=== PATIENT | female | born 1945 | race Caucasian/White ===

== ENCOUNTER 2020-01-08 11:08 | Emergency (ER) | payer MEDICARE, SELFPAY ==
[2020-01-08 11:26] VITALS: BP 150/95; PULSE 85; RESP 16; TEMP 36.6; O2SAT 94; BMI 35.4
--- NOTE | 2020-01-08 11:45 | XR_ITS ---
EXAMINATION: XR KNEE, LEFT CLINICAL INFORMATION: Left knee swelling. COMPARISON: None TECHNIQUE: Four views of the left knee. FINDINGS: There is mild loss of medial and patellofemoral compartment joint space with periarticular spurring. There is no loose bodies. There is mild joint effusion with superior patellar spurring. No acute fracture seen. XR/XR knee LT 4V IMPRESSION: Mild degenerative changes medial and patellofemoral compartment with mild suprapatellar joint effusion. There are small osteophytes along superior patella.
--- NOTE | 2020-01-08 11:46 | ED.LOWEXIN ---
HPI - Extremity Injury (Lower) General Chief Complaint: Extremity Injury, Lower Stated Complaint: L LEG PAIN Time Seen by Provider: 01/08/20 11:45 Source: patient Mode of arrival: ambulatory Limitations: no limitations History of Present Illness HPI Narrative: 75 yo female with past medical history of afib on xarelto, CHF, COPD, HTN, depression, glaucoma, arthritis here with left knee pain x 1 week. Atraumatic. Patient tells me in November she had a RLE injury and was putting most of her weight on her LLE. She has done more activity the last few weeks (walking around the mall, walking longer distance to home from car). Noticed over the last week more pain in her left knee with swelling. No fevers, chills, erythema or calf pain. She does have pain over the anterior and posterior knee and using an faisla wrap, taking tylenol and elevating with continued symptoms. She often feels like the knee may give out on her when walking and she may fall. MD complaint: other (knee pain ) Onset (ago): week(s) Injury: Left: knee Type of Injury: other (no injury ) Severity: mild Relieving factors: immobilization and rest Exacerbating factors: weight bearing, movement and palpation Other symptoms: none Treatments prior to arrival: cold therapy, bandage and other (tylenol, elevation ) Related Data Allergies Allergy/AdvReac Type Severity Reaction Status Date / Time acetaminophen [Percocet] Allergy Unknown Vomiting Verified 01/08/20 11:29 losartan Allergy Unknown palp Verified 09/29/19 00:00 pseudoephedrine [Sudafed] Allergy Unknown Unknown Verified 01/08/20 11:29 oxycodone [OXYCODONE] AdvReac Mild NAUSEA & Unverified 12/03/19 15:39 VOMITING From SUDAFED Allergy Unknown UNKNOWN Uncoded 12/03/19 15:39 milk intolerant Allergy Unknown Unknown Uncoded 01/08/20 11:29 Review of Systems Review of Systems: Yes all other systems are reviewed and are negative Constitutional: Constitutional: Reports no additional constitutional complaints, Denies body ache(s), Denies chills, Denies fever(s), Denies headache(s) and Denies weakness Eyes: Eyes: Reports no additional eye complaints and Denies change in vision ENT: Reports system reviewed and no additional complaints, except as documented, Denies dizziness, Denies headache(s), Denies nasal congestion, Denies nasal discharge and Denies neck pain Cardiovascular: Cardiovascular: Reports no additional cardiovascular complaints, Denies chest pain, Denies leg edema and Denies dyspnea Respiratory: Respiratory: Reports no additional respiratory complaints, Denies cough and Denies dyspnea Gastrointestinal: Gastrointestinal: Reports no additional gastrointestinal complaints, Denies abdominal pain, Denies diarrhea, Denies nausea and Denies vomiting Genitourinary: Genitourinary: Reports no additional female genitourinary complaints and Denies urinary incontinence Musculoskeletal: Musculoskeletal: Reports no additional musculoskeletal complaints, Denies back pain, Reports arthralgias, Reports joint swelling, Denies neck pain, Denies numbness and Denies tingling Integumentary/Breasts: Skin/Breast: Reports system reviewed and no additional complaints, except as docu and Denies rash Neurologic: Reports system reviewed and no additional complaints, except as documented, Denies Abnormal speech present, Denies dizziness, Denies headache(s), Denies numbness, Denies tingling and Denies weakness [facility] Past Medical History Attestation statement: The following information was validated with the patient. Source: old records reviewed, obtained from family and nursing notes reviewed Medical History (Updated 01/08/20 @ 13:37 by Grace Lozada NP) Atrial fibrillation CHF (congestive heart failure) COPD (chronic obstructive pulmonary disease) Depression Glaucoma Hypertension Osteopenia Social History Social History Advance Directives: No Advance Directives Information Provided: Yes Physical Exam Vital Signs: Vital Signs: Vital Signs Temp Pulse Resp BP Pulse Ox 01/08/20 11:26 97.8 F 85 16 150/95 H 94 Body Mass Index 35.4 Const: General: cooperative, healthy appearing, comfortable and no acute distress Orientation/consciousness: patient oriented x3 Limitations: no limitations HENMT: Head: Yes normal to inspection Ears: hearing grossly normal bilaterally General nose exam: Normal external nose present Face and sinus: Yes normal facial exam Mouth: Normal oral and palatal mucosa present Throat: Yes posterior oropharynx normal Eyes: General: appearance normal, both eyes and all related structures Pupils: Equal, round and reactive pupils present Neck: Neck: Yes normal visual inspection Chest: Chest palpation & inspection: normal inspection of the chest Resp: Effort & Inspection: normal respiratory effort Auscultation: clear to auscultation bilaterally Cardio: Rate: regular rate Rhythm: regular rhythm Peripheral pulses: Peripheral pulses 2+ throughout GI: Inspection: Yes normal to inspection Palpation (GI): Soft to palpation and nontender Auscultation: normal bowel sounds Back/Spine/Pelvis: Thoracic/Lumbar Spine: thoracic and lumbar spine normal to inspection Skin: General skin exam: no rashes or lesions noted Neuro: General: patient oriented x3, no focal motor deficits and normal sensation to monofilament Cranial nerves: Yes Equal, round and reactive pupils present Cognition (Neuro): normal cognition Speech: No Abnormal speech present Gait exam (Neuro): Normal gait present Motor exam (neuro): 5/5 motor strength present throughout Extrem: General: Yes normal to inspection Left lower extremity: knee (FROM, pain with flexion but able ) Details: normal to inspection, tenderness (posterior knee ) Location: of the patella, swelling (mild) Location: of the patella and knee ligament exam normal Course Course Course Narrative: Atraumatic left knee pain, may be related to recent increase in dependency and usage. Will check x-rays. US d/t posterior knee pain with history of afib. 1400- X-ray shows arthritic changes. Ultrasound negative for DVT but does show a left Ferrraa cyst. Reviewed findings with patient. Reviewed follow-up with orthopedics. Reviewed worrisome signs and symptoms and when to return to the emergency department. Comfortable with discharge home. MDM - Extremity Injury (Lower) MDM Narrative Medical decision making narrative: OA, fracture, sprain, knee effusion, polpliteal dvt, bakers cyst Medical Records Attestation: I reviewed the patient's medical records. Imaging Data venous US: Attestation: I personally reviewed and interpreted this imaging study as follows: My impression: L bakers cyst Radiologist's impression: EXAMINATION: US VENOUS ULTRASOUND WITH DOPPLER LOWER EXTREMITY, LEFT CLINICAL INFORMATION: Left lower extremity edema and pain. COMPARISON: Venous ultrasound dated 02/27/2011. TECHNIQUE: Ultrasound of the deep veins is performed from the hip to the calf with compression sonography and color and pulse Doppler assessment. Spectral analysis with color-flow imaging is performed. FINDINGS: There is normal venous compression and respiratory variation and augmented flow. The visualized common femoral vein, proximal greater saphenous vein, femoral vein, profunda femoral vein, popliteal vein, posterior tibial vein and peroneal vein show no evidence of deep venous thrombosis. There is a 5.8 x 1.6 x 2.8 cm left popliteal fossa Ferrara's cyst. If the patient's symptoms persist, followup ultrasound in 5 days 7 days might be of value to exclude proximal propagation from a non-visualized calf vein. US/US venous duplex LE LT IMPRESSION: 1. No DVT demonstrated in the left lower extremity. 2. A left popliteal fossa Ferrara's cyst is seen. Discharge Plan Discharge Clinical Impression: Osteoarthritis, Ferrara's cyst of knee Patient Disposition: Home, Self-Care Instructions: Bakers Cyst (ED), Arthritis (ED) Additional Instructions: Faisal wrap, ice, elevation call orthopedics for a follow-up appointment continue tylenol for pain Referrals: Mariela Beltran MD [Primary Care Provider] - 2 days Josie Perrin PA-C [Physician Senior [employer] Engineer] - 2 days Interventions: ED Discharge Assessment Last Done: 01/08/20 13:42 Discharge Date/Time: 01/08/20 13:42
== END 2020-01-08 13:42 | disposition home or self-care (01) ==
PROVIDERS: Emergency Provider Emergency Medicine; PCP Internal Medicine
DX: M17.12 Unilateral primary osteoarthritis, left knee (principal); M71.22 Synovial cyst of popliteal space [Baker], left knee; M25.562 Pain in left knee; M79.605 Pain in left leg; I48.91 Unspecified atrial fibrillation; I11.0 Hypertensive heart disease with heart failure; I50.9 Heart failure, unspecified; Z79.01 Long term (current) use of anticoagulants
CPT/HCPCS: 73564; 93971; 99283; 99284

== ENCOUNTER 2020-02-23 10:33 | Outpatient (REF) | payer MEDICARE, SELFPAY ==
[2020-02-23 14:27] LABS: Alanine Aminotransferase 21 U/L (0-31); Alkaline Phosphatase 167 U/L (39-117); Anion Gap 13 (12-20); Aspartate Amino Transferase 26 U/L (5-31); Bilirubin Total 0.7 mg/dL (0.0-1.0); Blood Urea Nitrogen 17 mg/dL (9-16); Calcium 9.1 mg/dL (8.4-10.2); Carbon Dioxide 31 mmol/L (22-29); Chloride 100 mmol/L (96-108); Estimated Glomerular Filt Rate > 60; Glucose Fasting 94 mg/dL (60-99); Potassium 4.2 mmol/l (3.3-5.1); Sodium 140 mmol/L (135-145); Total Protein 7.4 g/dL (6.5-8.0)
== END 2020-02-23 10:34 | disposition home or self-care (01) ==
LOC: HO.10HDL 10:33
PROVIDERS: Visit Provider Internal Medicine
DX: M54.2 Cervicalgia (principal); I10 Essential (primary) hypertension; J44.9 Chronic obstructive pulmonary disease, unspecified; I48.0 Paroxysmal atrial fibrillation; E78.5 Hyperlipidemia, unspecified
CPT/HCPCS: 80053

== ENCOUNTER → 2020-02-24 12:45 | Outpatient (BNVA) | payer MEDICARE, SELFPAY | PROVIDERS: PCP Internal Medicine; Referring Provider Internal Medicine; Visit Provider Internal Medicine | DX: Z01.810 Encounter for preprocedural cardiovascular examination (principal); I48.19 Other persistent atrial fibrillation; I50.30 Unspecified diastolic (congestive) heart failure | CPT/HCPCS: 93005; 99212 ==

== ENCOUNTER → 2020-02-25 07:34 | Outpatient (REF) | payer MEDICARE, SELFPAY ==
--- NOTE | 2020-02-25 07:30 | CA_ITS ---
Transthoracic Echocardiogram Patient (Last, First, Middle): Danya Yan, Gender: Female Date of : 1945 Age: 75 Procedure Date: 02/25/2020 Procedure Type: Transthoracic Echocardiogram Location: OP Height: 160.02 cm Weight: 90.72 kg BSA: 1.93 m2 Heart Rate: bpm BP: 156 / 86 mmHg Tipple Supervisor: AC Referring MD: Frandy Basilio MD Symptoms: I48.19 PERSISTENT AFIB, I48.91 PER AFIB S/P CARDIOVERSION, Study Quality: Good ECG Rhythm: Atrial Fibrillation Conclusions: - The left ventricular systolic function is normal. The visually estimated ejection fraction is between 55-60%. - The left atrium is moderately dilated. - There is mild calcification of the aortic valve. - There is mild tricuspid valve regurgitation. - Mild pulmonary hypertension is present. Findings Left Ventricle Normal left ventricular cavity size. There is mildly increased left ventricular wall thickness. The left ventricular systolic function is normal. The visually estimated ejection fraction is between 55-60%. There is no evidence of regional wall motion abnormalities. Diastolic function is indeterminate on the basis of available data. Right Ventricle Normal right ventricular cavity size and systolic function. Atria The left atrium is moderately dilated. The right atrium is normal in size. Aortic Valve There is a normal trileaflet aortic valve. There is mild calcification of the aortic valve. There is no aortic valve stenosis. There is trace (trivial) aortic valve regurgitation. Mitral Valve The mitral valve appears normal. There is mild mitral valve regurgitation. There is no mitral valve stenosis. Pulmonic Valve The pulmonic valve was not well visualized. There is trace pulmonic valve regurgitation. Tricuspid Valve Normal tricuspid valve structure. There is mild tricuspid valve regurgitation. The right ventricular systolic pressure is 38 mmHg. Mild pulmonary hypertension is present. Great Vessels The aortic annulus, sinuses of valsalva, and asc aorta are normal in size. Venous The inferior vena cava is mildly dilated and collapses greater than 50% with inspiration. Pericardium/Pleural There is no evidence of pericardial effusion. Prior Study Comparison Changes noted compared to prior study dated: 10/25/2017. RVSP slightly higher. Measurements 2D Linear Measurements IVSd: 1.08 0.6-0.9/0.6-1.0 cm LVIDd: 4.53 3.9-5.3/4.2-5.9 cm LVIDd Index: 2.35 2.4-3.2/2.2-3.1 cm/m2 LVIDs: 3.35 2.0-3.6 cm LVPWd: 1.20 0.7-1.1 cm Ao Root: 2.70 2.1-3.5 cm LA Diam: 4.10 2.7-3.8/3.0-4.0 cm LAIDs Index: 2.12 1.5-2.3 cm/m2 LV Mass: 231.78 67-162/88-224 g LV Mass Index: 120.09 43-95/49-115 g/m2 LVOT Diam: 2.00 3.0+(-)1.3 cm 2D Systolic Function EF 4C: 50.50 >55% EF 2C: 50.50 >55% Mitral Valve MV Pk E: 0.75 MV Decel Time: 150.00 E'Lateral: 10.20 E'Medial: 7.64 E/E' Med: 9.80 E/E' Lat: 7.30 PHT: 44.00 MVA PHT: 5.00 Decel Parker: 5.22 Aortic Valve AoV Pk Pb: 1.70 AoV Pk Grad: 12.00 LVOT LVOT Pk Pb: 0.85 LVOT Mn Pb: 0.53 LVOT VTI: 0.18 LVOT Pk Grad: 3.00 LVOT Mn Grad: 2.00 LVOT Diam: 2.00 LVOT Area: 3.14 Diastolic Function MV Pk E: 0.75 E'Medial: 7.64 E/E' Med: 9.80 E' Laterial: 10.20 E/E' Lat: 7.30 Tricuspid Valve TR Pk Pb: 2.96 TR Pk Grad: 35.00 RA Press: 3.00 RVSP: 38.00 Great Vessels Aorta Ao Root-2D: 2.70 2.0-3.7 cm Ao Asc: 3.20 2.1-3.4 cm Updated in Other Vendor System with Status of Final Frandy Basilio MD electronically signed on 02/26/2020 12:44:22 PM with status of Final
== END ==
LOC: HO.CARD 07:34
PROVIDERS: Visit Provider Internal Medicine
DX: I48.19 Other persistent atrial fibrillation (principal); I50.30 Unspecified diastolic (congestive) heart failure
CPT/HCPCS: 93306

== ENCOUNTER 2020-02-26 14:21 | Outpatient (REF) | payer MEDICARE, SELFPAY ==
[2020-02-26 15:44] LABS: Digoxin 0.4 ng/mL (0.8-2.0)
== END 2020-02-26 14:22 | disposition home or self-care (01) ==
LOC: HO.LAB 14:21
PROVIDERS: PCP Internal Medicine; Visit Provider Internal Medicine
DX: I48.19 Other persistent atrial fibrillation (principal)
CPT/HCPCS: 80162

== ENCOUNTER → 2020-07-06 13:44 | Outpatient (REF) | payer MEDICARE, SELFPAY ==
--- NOTE | 2020-07-06 13:45 | ECG_ITS ---
Hook-up date: 2020-07-06 14:00:00 Duration: 25:39:00 Test Indications: persistant afib Medications: 479602 QRS complexes 2114 Ventricular ectopics which represent 1 % of total QRS comp. * Supraventricular ectopics which represent % of total QRS comp. * Paced QRS complexs which represent % of total QRS comp. VENTRICULAR ECTOPY 4 Isolated 16 Bigeminal Cycles 15 Couplets 0 Runs 0 Beats in Runs * Beats LONGEST at * BPM at :: -- * Beats FASTEST at * BPM at :: -- SUPRAVENTRICULAR ECTOPY * Isolated * Couplets * Runs * Beats in Runs * Beats LONGEST at * BPM at :: -- * Beats FASTEST at * BPM at :: -- HEART RATES 45 MIN at 06:01:19 2020-07-07 74 AVG 150 MAX at 09:47:58 2020-07-07 LONGEST RR 2.2640 secs at 04:52:16 2020-07-07 S-T LEVELS Channel 1 - 128 mm at 14:00:00 2020-07-06 - 128 mm at 14:00:00 2020-07-06 Channel 2 - 128 mm at 14:00:00 2020-07-06 - 128 mm at 14:00:00 2020-07-06 Channel 3 - 128 mm at 03:31:91 -- - 128 mm at 03:31:91 Underlying rhythm is atrial fibrillation; Average 74/min; range 45-150/min; Most rates are 60-100/min; Occasional PVCs (1%); mostly isolated, some couplets and bigeminy; No sustained arrhythmias; Overall, mostly controlled atrial fibrillation with few rapid rates (4% of time); Patient did not report any symptoms in the diary Referred By: Kate Riojas Overread By: KATE RIOJAS
== END ==
LOC: HO.CARD 13:44
PROVIDERS: PCP Internal Medicine; Visit Provider Internal Medicine
DX: I48.19 Other persistent atrial fibrillation (principal)
CPT/HCPCS: 93225; 93226

== ENCOUNTER → 2020-07-12 14:58 | Outpatient (BNVA) | payer MEDICARE, SELFPAY | PROVIDERS: PCP Internal Medicine; Visit Provider Internal Medicine | DX: I48.19 Other persistent atrial fibrillation (principal); I50.32 Chronic diastolic (congestive) heart failure | CPT/HCPCS: 99212 ==

== ENCOUNTER → 2021-01-10 15:02 | Outpatient (BNVA) | payer MEDICARE, SELFPAY | PROVIDERS: PCP Internal Medicine; Referring Provider Internal Medicine; Visit Provider Internal Medicine | DX: I48.19 Other persistent atrial fibrillation (principal); I50.32 Chronic diastolic (congestive) heart failure | CPT/HCPCS: 99212 ==

== ENCOUNTER 2021-02-07 09:54 | Outpatient (REF) | payer MEDICARE, SELFPAY ==
[2021-02-07 14:37] LABS: Anion Gap 13 (12-20); Blood Urea Nitrogen 18 mg/dL (9-16); Calcium 9.4 mg/dL (8.4-10.2); Carbon Dioxide 29 mmol/L (22-29); Chloride 103 mmol/L (96-108); Estimated Glomerular Filt Rate > 60; Glucose Random 95 mg/dL (60-115); Potassium 3.8 mmol/L (3.3-5.1); Sodium 141 mmol/L (135-145)
[2021-02-07 14:44] LABS: Digoxin 0.5 ng/mL (0.8-2.0)
== END 2021-02-07 09:55 | disposition home or self-care (01) ==
LOC: HO.10HDL 09:54
PROVIDERS: Visit Provider Internal Medicine
DX: I48.19 Other persistent atrial fibrillation (principal)
CPT/HCPCS: 36415; 80048; 80162

== ENCOUNTER 2021-03-09 15:31 | Emergency (ER) | payer MEDICARE, SELFPAY ==
--- NOTE | 2021-03-09 | ECG_ITS ---
Test Reason : FALL Blood Pressure : / mmHG Vent. Rate : 081 BPM Atrial Rate : 000 BPM P-R Int : 000 ms QRS Dur : 088 ms QT Int : 388 ms P-R-T Axes : 000 003 097 degrees QTc Int : 450 ms Atrial fibrillation Moderate voltage criteria for LVH, may be normal variant ( R in aVL , Steve product ) Nonspecific ST and T wave abnormality Abnormal ECG When compared with ECG of 18-NOV-2019 13:49, No significant changes seen Referred By: Generic ED Physician Electronically Signed By:KATE RIOJAS
--- NOTE | ~2021-03-09 | XR_ITS ---
EXAMINATION: XR THORACIC SPINE XR LUMBAR SPINE CLINICAL INFORMATION: Trauma, fall. COMPARISON: CXR from 12/23/2017. Lumbar spine radiographs from 07/21/2015 TECHNIQUE: Lumbar spine, 3 views Thoracic spine, 2 views FINDINGS: THORACIC SPINE: Chronic multilevel degenerative disc space narrowing and osteophyte information of the thoracic spine. There is concave depression of the T12 superior endplate with approximately 25% height loss of the T12 vertebral body. Otherwise, the thoracic vertebra have well preserved height and alignment. No acute findings in the partially visualized degenerated cervical spine. Incidentally noted is right-sided deviation of the trachea just proximal to the level of the clavicles. The trachea was midline in position on the chest radiograph from 12/23/2017. Recommend correlation with findings on physical examination with regards to the thyroid gland and/or thyroid ultrasound follow-up to exclude any significant nodule of the left thyroid. 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 The lumbar vertebral body heights are well-preserved. There is chronic multilevel degenerative disc disease and facet osteoarthritis of lumbar spine. At L4-L5, there is 1 cm of grade 2 anterolisthesis of L4, and this is not significantly changed compared to 07/21/2015. No acute traumatic subluxation in the degenerated spine. The sacrum and sacroiliac joints are unremarkable. The right total hip arthroplasty hardware is partially included in the [id number]. Atherosclerotic calcification of the abdominal aorta without radiographic evidence of aneurysm. XR/XR lumbar spine 2-3V IMPRESSION: * Mild compression fracture of the T12 vertebral body is new compared to 12/23/2017. * No acute fractures within the chronically degenerated levoscoliotic lumbar spine. There is chronic grade 2 anterolisthesis at L4-L5. * The right-sided tracheal deviation observed just above the level of the clavicles is new compared to 12/23/2017. Since there might be a thyroid nodule causing this displacement, recommend correlation with physical examination findings and/or thyroid ultrasound.
--- NOTE | ~2021-03-09 | XR_ITS ---
EXAMINATION: XR THORACIC SPINE XR LUMBAR SPINE CLINICAL INFORMATION: Trauma, fall. COMPARISON: CXR from 12/23/2017. Lumbar spine radiographs from 07/21/2015 TECHNIQUE: Lumbar spine, 3 views Thoracic spine, 2 views FINDINGS: THORACIC SPINE: Chronic multilevel degenerative disc space narrowing and osteophyte information of the thoracic spine. There is concave depression of the T12 superior endplate with approximately 25% height loss of the T12 vertebral body. Otherwise, the thoracic vertebra have well preserved height and alignment. No acute findings in the partially visualized degenerated cervical spine. Incidentally noted is right-sided deviation of the trachea just proximal to the level of the clavicles. The trachea was midline in position on the chest radiograph from 12/23/2017. Recommend correlation with findings on physical examination with regards to the thyroid gland and/or thyroid ultrasound follow-up to exclude any significant nodule of the left thyroid. 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 The lumbar vertebral body heights are well-preserved. There is chronic multilevel degenerative disc disease and facet osteoarthritis of lumbar spine. At L4-L5, there is 1 cm of grade 2 anterolisthesis of L4, and this is not significantly changed compared to 07/21/2015. No acute traumatic subluxation in the degenerated spine. The sacrum and sacroiliac joints are unremarkable. The right total hip arthroplasty hardware is partially included in the [id number]. Atherosclerotic calcification of the abdominal aorta without radiographic evidence of aneurysm. XR/XR thoracic spine 2V IMPRESSION: * Mild compression fracture of the T12 vertebral body is new compared to 12/23/2017. * No acute fractures within the chronically degenerated levoscoliotic lumbar spine. There is chronic grade 2 anterolisthesis at L4-L5. * The right-sided tracheal deviation observed just above the level of the clavicles is new compared to 12/23/2017. Since there might be a thyroid nodule causing this displacement, recommend correlation with physical examination findings and/or thyroid ultrasound.
--- NOTE | ~2021-03-09 | CT_ITS ---
EXAMINATION: CT HEAD WITHOUT CONTRAST CLINICAL INFORMATION: Fall. On blood thinners. COMPARISON: CT head 01/23/2018 TECHNIQUE: Contiguous axial imaging was performed from the skull base to vertex without intravenous administration of contrast. Coronal and sagittal reformatted images performed at the CT scanner This CT examination was performed using dose optimization techniques as appropriate, variously including the following: *Automated exposure control *Adjustment of mA and/or kV according to patient size (this includes techniques or standardized protocols for targeted exams where dose is matched to indication/reason for exam; i.e. extremities or head) *Use of iterative reconstruction technique DLP: 602. mGy-cm FINDINGS: There is no evidence of acute intracranial hemorrhage or territorial infarction. No abnormal mass effect or midline shift is seen. Torres to white matter differentiation is well preserved. No extra-axial fluid collections are identified. Incidental note of cavum vellum interpositum. There is generalized global volume loss. There is mild prominence of the ventricles and the sulci . There are vascular calcifications of the internal carotid arteries bilaterally. The osseous structures and soft tissues are normal. The mastoid air cells and visualized portions of the paranasal sinuses are well aerated. CT/CT head/brain wo con IMPRESSION: No acute intracranial pathology.
[2021-03-09 16:23] VITALS: PULSE 78; RESP 16; TEMP 37.2; O2SAT 94; BMI 35.2
[2021-03-09 17:33] VITALS: BP 163/89
[2021-03-09 17:35] LABS: MANUAL DIFF FLAG NO
[2021-03-09 17:37] LABS: Basophils Absolute Auto 0.1 X10*3/uL (0.0-0.2); Basophils Percent Auto 0.6 % (0-2); Eosinophils Absolute Auto 0.3 X10*3/uL (0.0-0.4); Eosinophils Percent Auto 2.8 % (0-4); Hematocrit 46.5 % (37.0-47.0); Hemoglobin 15.1 g/dl (12.0-16.0); Imm Gran Abs Auto 0.04 X10*3/uL (0.00-0.03); Imm Gran Pct Auto 0.4 % (0.0-0.4); Lymphocytes Absolute Auto 1.4 X10*3/uL (1.2-4.9); Lymphocytes Percent Auto 14.3 % (20-40); Mean Corpuscular HGB Conc 32.5 g/dl (31.0-35.0); Mean Corpuscular Hemoglobin 31.3 pg (27.0-33.0); Mean Corpuscular Volume 96.3 fL (80.0-98.0); Mean Platelet Volume 9.4 fL (9.4-12.3); Monocytes Absolute Auto 1.2 X10*3/uL (0.1-1.2); Monocytes Percent Auto 12.5 % (2-11); Neutrophils Absolute Auto 6.6 x10*3/uL (2.0-8.3); Neutrophils Percent Auto 69.4 % (45-73); Platelet Count 243 X10*3/uL (160-400); Red Blood Count 4.83 X10*6/uL (4.20-5.50); Red Cell Distribution Width 13.2 % (11.0-16.0); White Blood Count 9.5 X10*3/uL (4.8-10.8)
[2021-03-09 17:43] LABS: INTERNATIONAL NORM RATIO 1.9 (0.9-1.1); Prothrombin Time 21.7 SEC (9.9-13.0)
[2021-03-09 18:05] LABS: Alanine Aminotransferase 19 U/L (0-31); Albumin Level 3.7 g/dL (3.5-5.0); Alkaline Phosphatase 136 U/L (39-117); Anion Gap 13 (12-20); Aspartate Amino Transferase 25 U/L (5-31); Bilirubin Total 0.8 mg/dL (0.0-1.0); Blood Urea Nitrogen 15 mg/dL (9-16); Calcium 9.2 mg/dL (8.4-10.2); Carbon Dioxide 28 mmol/L (22-29); Chloride 105 mmol/L (96-108); Creatinine Clr Calc Pharmacy 57.5; Estimated Glomerular Filt Rate > 60; Glucose Random 107 mg/dL (60-115); Potassium 3.8 mmol/L (3.3-5.1); Sodium 142 mmol/L (135-145); Total Protein 7.3 g/dL (6.5-8.0)
[2021-03-09 19:33] VITALS: BP 175/90; PULSE 88; RESP 16; TEMP 36.6; O2SAT 94
--- NOTE | 2021-03-09 19:36 | ED_ITS ---
HPI - Fall General Chief Complaint: Fall Stated Complaint: fall/back pain nausea Time Seen by Provider: 03/09/21 19:36 Source: patient Mode of arrival: ambulatory Limitations: no limitations History of Present Illness HPI Narrative: Patient on Eliquis while walking 3 days ago, holding bag of groceries lost balance and fell backwards hitting her upper back and the head to the ground complaining of upper back pain slight headache no loss of consciousness main complaint at this time his upper back pain patient ambulatory no shortness of breath Related Data Home Medications Medication Instructions Recorded Confirmed albuterol sulfate 90 mcg/actuation 2 puff INHALATION Q4-6H PRN 02/24/20 01/10/21 aerosol inhaler bimatoprost 0.01 % eye drops drp OPHTHALMIC (EYE) 02/24/20 01/10/21 fluticasone 500 mcg-salmeterol 50 2 ea INHALATION Q12H 02/24/20 01/10/21 mcg/dose blistr powdr for inhalation timolol maleate 0.5 % eye drops drp OPHTHALMIC (EYE) 02/24/20 01/10/21 Previous Rx's Medication Instructions Recorded digoxin 125 mcg (0.125 mg) tablet 125 mcg PO DAILY 90 Days #90 tab 05/05/20 metoprolol succinate 25 mg 25 mg PO DAILY #90 tab 05/05/20 tablet,extended release 24 hr diltiazem HCl 180 mg 180 mg PO DAILY #90 cap 05/17/20 capsule,extended release 24 hr rivaroxaban 20 mg tablet (Xarelto) 20 mg PO DAILY 90 Days #90 tab 07/22/20 furosemide 20 mg tablet 20 mg PO DAILY #90 tab 08/16/20 sertraline 100 mg tablet 100 mg PO DAILY #90 tab 10/04/20 amoxicillin 500 mg capsule 500 mg PO DAILY #4 cap 10/11/20 potassium chloride 10 mEq 10 meq PO DAILY #90 tab 12/28/20 tablet,extended release lidocaine 4 % topical patch 1 patch TOPICAL DAILY #30 ea 03/09/21 (Salonpas (lidocaine)) tramadol 50 mg tablet 50 mg PO Q6H PRN #20 tab 03/09/21 Allergies Allergy/AdvReac Type Severity Reaction Status Date / Time losartan Allergy Unknown palp Verified 01/10/21 15:16 pseudoephedrine [Sudafed] Allergy Unknown Unknown Verified 01/10/21 15:16 oxycodone [OXYCODONE] AdvReac Mild NAUSEA & Verified 01/10/21 15:16 VOMITING Review of Systems Review of Systems: Yes all other systems are reviewed and are negative [facility] Past Medical History Medical History Atrial fibrillation CHF (congestive heart failure) COPD (chronic obstructive pulmonary disease) Depression Glaucoma Heart failure with preserved ejection fraction Hypertension Neck pain Osteopenia Persistent atrial fibrillation Surgical History History of cardiac radiofrequency ablation History of cardioversion Family History Family History Father No problems noted. Mother No problems noted. Social History Social History Patient Tobacco Use Status: Never used Tobacco Advance Directives: No Advance Directives Information Provided: Yes Physical Exam Vital Signs: Vital Signs: Last Vital Signs Temp 97.9 F 03/09/21 19:33 Pulse 96 03/09/21 21:07 Resp 16 03/09/21 21:07 BP 182/94 H 03/09/21 21:07 Pulse Ox 95 03/09/21 21:07 BMI result Body Mass Index 35.2 Appearance: Alert. Oriented X3. No acute distress. Eyes: PERRLA, ENT: Pharynx normal. Oral Mucosa moist Neck: Normal inspection. Neck supple. CVS: Normal heart rate and rhythm. Pulses normal. Respiratory: No respiratory distress. Equal air entry bilateral, no wheezing/rales/rhonchi Abdomen: Soft and nontender. Bowel sounds are present, no mass palpable, no CVA tenderness Skin: Skin warm and dry. Normal skin color. Normal skin turgor. Extremities: No lower extremity edema. No calf tenderness back: Tenderness T11-T12 area mostly on the right side Neuro: Oriented X 3. No motor deficit. No sensory deficit.No cerebellar signs , cranial nerves II-XII intact MDM - Fall MDM Narrative Medical decision making narrative: Patient is status post mechanical fall CT scan head is negative thoracic spine x-ray showed mild compression fracture of T12 patient was given pain medication and Lidoderm patch advised to follow with PCP Lab Data Attestation: I reviewed the patient's lab results. Result diagrams: 03/09/21 17:28 03/09/21 17:28 Labs: Lab Results 03/09/21 03/09/21 03/09/21 Range/Units 17:28 17:28 17:28 WBC 9.5 (4.8-10.8) X10*3/uL RBC 4.83 (4.20-5.50) X10*6/uL Hgb 15.1 (12.0-16.0) g/dl Hct 46.5 (37.0-47.0) % MCV 96.3 (80.0-98.0) fL MCH 31.3 (27.0-33.0) pg MCHC 32.5 (31.0-35.0) g/dl RDW 13.2 (11.0-16.0) % Plt Count 243 (160-400) X10*3/uL MPV 9.4 (9.4-12.3) fL Immature Gran % (Auto) 0.4 (0.0-0.4) % Neut % (Auto) 69.4 (45-73) % Lymph % (Auto) 14.3 L (20-40) % [place] % (Auto) 12.5 H (2-11) % Eos % (Auto) 2.8 (0-4) % Baso % (Auto) 0.6 (0-2) % Lymph # (Auto) 1.4 (1.2-4.9) X10*3/uL [place] # (Auto) 1.2 (0.1-1.2) X10*3/uL Eos # (Auto) 0.3 (0.0-0.4) X10*3/uL Baso # (Auto) 0.1 (0.0-0.2) X10*3/uL Abs Immat Gran (auto) 0.04 H (0.00-0.03) X10*3/uL Absolute Neuts (auto) 6.6 (2.0-8.3) x10*3/uL Absolute Nucleated RBC 0.000 (0.0-0.012) X10*3/uL Nucleated RBC % (auto) 0.0 (0.0-0.2) /100WBC PT 21.7 H (9.9-13.0) SEC INR 1.9 H (0.9-1.1) Sodium 142 (135-145) mmol/L Potassium 3.8 (3.3-5.1) mmol/L Chloride 105 (96-108) mmol/L Carbon Dioxide 28 (22-29) mmol/L Anion Gap 13 (12-20) BUN 15 (9-16) mg/dL Creatinine 0.86 (0.5-1.4) mg/dL Estim Creat Clear Calc 57.5 Estimated GFR > 60 Random Glucose 107 (60-115) mg/dL Calcium 9.2 (8.4-10.2) mg/dL Total Bilirubin 0.8 (0.0-1.0) mg/dL AST 25 (5-31) U/L ALT 19 (0-31) U/L Alkaline Phosphatase 136 H (39-117) U/L Total Protein 7.3 (6.5-8.0) g/dL Albumin 3.7 (3.5-5.0) g/dL Imaging Data Thoracic spine x-ray: Attestation: I personally reviewed and interpreted this imaging study as follows: Radiologist's impression: XR/XR thoracic spine 2V IMPRESSION: *? Mild compression fracture of the T12 vertebral body is new compared to 12/23/2017. *? No acute fractures within the chronically degenerated levoscoliotic lumbar spine. There is chronic grade 2 anterolisthesis at L4-L5. *? The right-sided tracheal deviation observed just above the level of the clavicles is new compared to 12/23/2017. Since there might be a thyroid nodule causing this displacement, recommend correlation with physical examination findings and/or thyroid ultrasound. ECG Data Attestation: I personally reviewed and interpreted this ECG as follows: Interpretation: Atrial fibrillation heart rate 81 beats per minute LVH no acute STT wave changes no acute ischemic Discharge Plan Discharge Clinical Impression: Compression fracture of thoracic vertebra Patient Disposition: Home, Self-Care Instructions: Vertebral Compression Fracture (ED) Additional Instructions: You have mild thoracic 12 vertebral compression fracture Take pain medication as advised Lidoderm patch for local pain Follow with PCP if pain gets worse for further management including vertebroplasty Prescriptions: New tramadol 50 mg tablet 50 mg PO Q6H PRN (Reason: pain) Qty: 20 RF: 0 lidocaine [Salonpas (lidocaine)] 4 % adhesive patch,medicated 1 patch topical DAILY Qty: 30 RF: 0 No Action digoxin 125 mcg (0.125 mg) tablet 125 mcg PO DAILY 90 Days Qty: 90 RF: 3 metoprolol succinate 25 mg tablet extended release 24 hr 25 mg PO DAILY Qty: 90 RF: 3 diltiazem HCl 180 mg capsule,extended release 24hr 180 mg PO DAILY Qty: 90 RF: 3 Xarelto 20 mg tablet 20 mg PO DAILY 90 Days Qty: 90 RF: 3 furosemide 20 mg tablet 20 mg PO DAILY Qty: 90 RF: 3 sertraline 100 mg tablet 100 mg PO DAILY Qty: 90 RF: 3 amoxicillin 500 mg capsule 500 mg PO DAILY Qty: 4 RF: 3 potassium chloride 10 mEq tablet extended release 10 meq PO DAILY Qty: 90 RF: 1 Lumigan 0.01 % drops ophthalmic (eye) RF: 0 timolol maleate 0.5 % drops ophthalmic (eye) RF: 0 fluticasone propion-salmeterol 500-50 mcg/dose blister with device 2 ea inhalation Q12H RF: 0 albuterol sulfate 90 mcg/actuation HFA aerosol inhaler 2 puff inhalation Q4-6H PRNRF: 0 Interventions: ED Discharge Assessment Last Done: 03/09/21 21:16 Discharge Date/Time: 03/09/21 21:18
[2021-03-09] MEDS: traMADoL HCL 50 MG TABLET PO (21:05)
[2021-03-09] MEDS: Lidocaine 4 % Patch ADH..PATCH 1 PATCH TRANSDERMA (21:06)
[2021-03-09 21:07] VITALS: BP 182/94; PULSE 96; RESP 16; O2SAT 95
== END 2021-03-09 21:18 | disposition home or self-care (01) ==
PROVIDERS: Emergency Provider Internal Medicine; PCP Internal Medicine
DX: S22.089A Unspecified fracture of T11-T12 vertebra, initial encounter for closed fracture (principal); I48.19 Other persistent atrial fibrillation; I11.0 Hypertensive heart disease with heart failure; I50.30 Unspecified diastolic (congestive) heart failure; Z79.01 Long term (current) use of anticoagulants; W01.0XXA Fall on same level from slipping, tripping and stumbling without subsequent striking against object, initial encounter; Y93.9 Activity, unspecified; Y92.9 Unspecified place or not applicable; Y99.9 Unspecified external cause status
CPT/HCPCS: 36415; 70450; 72070; 72100; 80053; 85025; 85610; 93005; 99284

== ENCOUNTER → 2021-07-19 14:15 | Outpatient (BNVA) | payer MEDICARE, SELFPAY | PROVIDERS: PCP Internal Medicine; Referring Provider Internal Medicine; Visit Provider Internal Medicine | DX: I11.0 Hypertensive heart disease with heart failure (principal); I50.32 Chronic diastolic (congestive) heart failure; I48.19 Other persistent atrial fibrillation | CPT/HCPCS: 93005; 99212 ==

== ENCOUNTER 2021-08-16 13:27 | Outpatient (REF) | payer MEDICARE, SELFPAY ==
[2021-08-16 14:26] LABS: Anion Gap 13 (12-20); Blood Urea Nitrogen 17 mg/dL (9-16); Calcium 9.6 mg/dL (8.4-10.2); Carbon Dioxide 29 mmol/L (22-29); Chloride 102 mmol/L (96-108); Estimated Glomerular Filt Rate 49; Glucose Random 125 mg/dL (60-115); Potassium 4.4 mmol/L (3.3-5.1); Sodium 140 mmol/L (135-145)
== END 2021-08-16 13:28 | disposition home or self-care (01) ==
LOC: HO.LAB 13:27
PROVIDERS: PCP Internal Medicine; Visit Provider Internal Medicine
DX: I10 Essential (primary) hypertension (principal)
CPT/HCPCS: 36415; 80048

== ENCOUNTER 2021-08-30 15:33 | Outpatient (REF) | payer MEDICARE, SELFPAY ==
[2021-08-30 16:29] LABS: Anion Gap 13 (12-20); Blood Urea Nitrogen 19 mg/dL (9-16); Calcium 9.3 mg/dL (8.4-10.2); Carbon Dioxide 28 mmol/L (22-29); Chloride 102 mmol/L (96-108); Estimated Glomerular Filt Rate 51; Glucose Random 106 mg/dL (60-115); Potassium 4.6 mmol/L (3.3-5.1); Sodium 138 mmol/L (135-145)
== END 2021-08-30 15:34 | disposition home or self-care (01) ==
LOC: HO.LAB 15:33
PROVIDERS: PCP Internal Medicine; Visit Provider Internal Medicine
DX: I10 Essential (primary) hypertension (principal)
CPT/HCPCS: 36415; 80048

== ENCOUNTER 2021-10-18 09:46 | Emergency (ER) | payer MEDICARE, SELFPAY ==
[2021-10-18 10:13] VITALS: BMI 33.6
[2021-10-18 10:14] VITALS: BP 160/83; PULSE 82; RESP 14; TEMP 36.6; O2SAT 94
[2021-10-18 16:00] VITALS: BP 169/89; PULSE 78; RESP 18; TEMP 36.4; O2SAT 98
--- NOTE | 2021-10-18 16:09 | PC.NURSE ---
patient a&ox3, vss, nose bleed has stopped, pt awaiting provider, pt is on thinners
--- NOTE | 2021-10-18 16:15 | ED_ITS ---
History of Present Illness General Chief Complaint: Epistaxis Stated Complaint: bloody nose, HBP Time Seen by Provider: 10/18/21 16:13 Source: patient Mode of arrival: ambulatory Limitations: no limitations History of Present Illness HPI Narrative: Patient history of AFib on Xarelto been having nose bleeds for last 3 days off and on last time she bled was early in the morning today self-limiting. No black stool no dizziness no head injury or headache. Patient also noticed her blood pressure is elevated in >170/100 range for last few days she was started on Diovan 80 mg. No chest pain or palpitation Related Data Home Medications Medication Instructions Recorded Confirmed albuterol sulfate 90 mcg/actuation 2 puff inhalation Q4-6H PRN 02/24/20 07/19/21 aerosol inhaler bimatoprost 0.01 % eye drops drp ophthalmic (eye) 02/24/20 07/19/21 fluticasone 500 mcg-salmeterol 50 2 ea inhalation Q12H 02/24/20 07/19/21 mcg/dose blistr powdr for inhalation timolol maleate 0.5 % eye drops drp ophthalmic (eye) 02/24/20 07/19/21 Previous Rx's Medication Instructions Recorded amoxicillin 500 mg capsule 500 mg PO DAILY #4 caps 10/11/20 lidocaine 4 % topical patch 1 patch topical DAILY #30 ea 03/09/21 (Salonpas (lidocaine)) tramadol 50 mg tablet 50 mg PO Q6H PRN pain #20 tabs 03/09/21 digoxin 125 mcg (0.125 mg) tablet 125 mcg PO DAILY 90 days #90 tabs 04/10/21 metoprolol succinate 25 mg 25 mg PO DAILY #90 tabs 04/10/21 tablet,extended release 24 hr potassium chloride 10 mEq 10 meq PO DAILY #90 tabs 06/09/21 tablet,extended release diltiazem HCl 240 mg 240 mg PO QAM #90 caps 07/19/21 capsule,extended release 24 hr furosemide 20 mg tablet 20 mg PO DAILY #90 tabs 09/07/21 rivaroxaban 20 mg tablet (Xarelto) 20 mg PO DAILY 90 days #90 tabs 09/13/21 valsartan 80 mg tablet 80 mg PO DAILY #30 tabs 09/20/21 sertraline 100 mg tablet 100 mg PO DAILY #90 tabs 09/22/21 Allergies Allergy/AdvReac Type Severity Reaction Status Date / Time losartan Allergy Unknown palp Verified 07/19/21 14:23 pseudoephedrine [Sudafed] Allergy Unknown Unknown Verified 07/19/21 14:23 acetaminophen [From Percocet] Allergy Unknown Verified 10/18/21 10:13 oxycodone [OXYCODONE] AdvReac Mild NAUSEA & Verified 07/19/21 14:23 VOMITING Review of Systems Review of Systems: Yes all other systems are reviewed and are negative [facility] Past Medical History Medical History Allergic rhinitis Atrial fibrillation CHF (congestive heart failure) COPD (chronic obstructive pulmonary disease) Depression Glaucoma Heart failure with preserved ejection fraction Hypertension Neck pain Osteopenia Persistent atrial fibrillation Surgical History History of cardiac radiofrequency ablation History of cardioversion Family History Family History Father No problems noted. Mother No problems noted. Social History Social History Housing: House Alcohol intake: current Alcohol intake frequency: holidays/special occasions only Patient Tobacco Use Status: Never used Tobacco Use of substances other than those prescribed or required for medical reasons: No Advance Directives: No Advance Directives Information Provided: No Current occupational status: retired Physical Exam Vital Signs: Vital Signs: Last Vital Signs Temp 97.6 F 10/18/21 16:00 Pulse 78 10/18/21 16:00 Resp 18 10/18/21 16:00 BP 169/89 H 10/18/21 16:00 Pulse Ox 98 10/18/21 16:00 O2 Del Method 10/18/21 16:00 BMI result Body Mass Index 33.6 Appearance: Alert. Oriented X3. No acute distress. Eyes: No pallor or icterus HEENT: Pharynx normal. Oral Mucosa moist no active nose bleed Neck: Normal inspection. Neck supple. CVS: Irregular irregular heart rate. Pulses normal. Respiratory: No respiratory distress. Equal air entry bilateral, no wheezing/rales/rhonchi Abdomen: Soft and nontender. Bowel sounds are present, no mass palpable, no CVA tenderness Skin: Skin warm and dry. Normal skin color. Normal skin turgor. Extremities: No lower extremity edema. No calf tenderness Neuro: Oriented X 3. No motor deficit. MDM - Epistaxis MDM Narrative Medical decision making narrative: Patient with recurrent nose bleed on Xarelto right nostril area where likely the cause of bleed was cauterized. Patient incidentally noticed to have potassium of 5.6 patient is on potassium tablets along with eating bananas advised not to take that, was given Lokelma patient EKG without any hyperkalemic changes Lab Data Attestation: I reviewed the patient's lab results. Result diagrams: 10/18/21 17:30 10/18/21 17:30 Labs: Lab Results 10/18/21 10/18/21 10/18/21 Range/Units 17:30 17:30 17:30 WBC 8.3 (4.8-10.8) X10*3/uL RBC 4.96 (4.20-5.50) X10*6/uL Hgb 15.5 (12.0-16.0) g/dl Hct 47.1 H (37.0-47.0) % MCV 95.0 (80.0-98.0) fL MCH 31.3 (27.0-33.0) pg MCHC 32.9 (31.0-35.0) g/dl RDW 12.5 (11.0-16.0) % Plt Count 252 (160-400) X10*3/uL MPV 9.0 L (9.4-12.3) fL Immature Gran % (Auto) 0.5 H (0.0-0.4) % Neut % (Auto) 59.9 (45-73) % Lymph % (Auto) 22.4 (20-40) % [place] % (Auto) 12.2 H (2-11) % Eos % (Auto) 4.0 (0-4) % Baso % (Auto) 1.0 (0-2) % Lymph # (Auto) 1.9 (1.2-4.9) X10*3/uL [place] # (Auto) 1.0 (0.1-1.2) X10*3/uL Eos # (Auto) 0.3 (0.0-0.4) X10*3/uL Baso # (Auto) 0.1 (0.0-0.2) X10*3/uL Abs Immat Gran (auto) 0.04 H (0.00-0.03) X10*3/uL Absolute Neuts (auto) 5.0 (2.0-8.3) x10*3/uL Absolute Nucleated RBC 0.000 (0.0-0.012) X10*3/uL Nucleated RBC % (auto) 0.0 (0.0-0.2) /100WBC PT 16.4 H (10.0-13.1) SEC INR 1.4 H (0.9-1.1) Sodium 144 (135-145) mmol/L Potassium 5.6 H D (3.3-5.1) mmol/L Chloride 103 (96-108) mmol/L Carbon Dioxide 31 H (22-29) mmol/L Anion Gap 16 (12-20) BUN 17 H (9-16) mg/dL Creatinine 1.06 (0.5-1.4) mg/dL Estim Creat Clear Calc 45.5 Estimated GFR 50 Random Glucose 105 (60-115) mg/dL Calcium 9.7 (8.4-10.2) mg/dL ECG Data Attestation: I personally reviewed and interpreted this ECG as follows: Interpretation: Atrial fibrillation ventricular rate 71 beats per minute normal interval normal axis nonspecific ST-T changes no acute ischemia Procedures Epistaxis Control Time Out Performed: Yes Nostril: Yes right Direct inspection: Yes anterior source identified Direct inspection method: Yes otoscope Epistaxis treatment: Yes silver nitrate cautery Complications: Yes none Discharge Plan Discharge Clinical Impression: Epistaxis Patient Disposition: Home, Self-Care Instructions: Nosebleed (ED) Additional Instructions: Hold the Xarelto tonight restart tomorrow if no nosebleed Increased her Diovan to 160 mg daily for blood pressure control Stop taking potassium capsule Your potassium level was elevated to 5.6 today Do not eat banana or oranges for next few days See your PCP in 1 week for recheck Prescriptions: No Action amoxicillin 500 mg capsule 500 mg PO DAILY Qty: 4 3RF metoprolol succinate 25 mg tablet extended release 24 hr 25 mg PO DAILY Qty: 90 3RF digoxin 125 mcg (0.125 mg) tablet 125 mcg PO DAILY 90 Days Qty: 90 3RF potassium chloride 10 mEq tablet extended release 10 meq PO DAILY Qty: 90 1RF furosemide 20 mg tablet 20 mg PO DAILY Qty: 90 3RF Xarelto 20 mg tablet 20 mg PO DAILY 90 Days Qty: 90 3RF Rx Instructions: must administer with evening meal valsartan 80 mg tablet 80 mg PO DAILY Qty: 30 5RF sertraline 100 mg tablet 100 mg PO DAILY Qty: 90 3RF tramadol 50 mg tablet 50 mg PO Q6H PRN (Reason: pain) Qty: 20 0RF lidocaine [Salonpas (lidocaine)] 4 % adhesive patch,medicated 1 patch topical DAILY Qty: 30 0RF Rx Instructions: may leave on for up to 12 hrs Lumigan 0.01 % drops ophthalmic (eye) timolol maleate 0.5 % drops ophthalmic (eye) fluticasone propion-salmeterol 500-50 mcg/dose blister with device 2 ea inhalation Q12H albuterol sulfate 90 mcg/actuation HFA aerosol inhaler 2 puff inhalation Q4-6H PRN diltiazem HCl 240 mg capsule,extended release 24hr 240 mg PO QAM Qty: 90 3RF Interventions: ED Discharge Assessment Last Done: 10/18/21 19:51 Discharge Date/Time: 10/18/21 19:51
[2021-10-18 17:34] LABS: MANUAL DIFF FLAG NO
[2021-10-18] MEDS: Silver Nitrate Applicator STICK..EA. 1 APPL TOPICAL (17:34)
[2021-10-18 17:35] LABS: Basophils Absolute Auto 0.1 X10*3/uL (0.0-0.2); Eosinophils Absolute Auto 0.3 X10*3/uL (0.0-0.4); Hematocrit 47.1 % (37.0-47.0); Hemoglobin 15.5 g/dl (12.0-16.0); Imm Gran Abs Auto 0.04 X10*3/uL (0.00-0.03); Imm Gran Pct Auto 0.5 % (0.0-0.4); Lymphocytes Absolute Auto 1.9 X10*3/uL (1.2-4.9); Lymphocytes Percent Auto 22.4 % (20-40); Mean Corpuscular HGB Conc 32.9 g/dl (31.0-35.0); Mean Corpuscular Hemoglobin 31.3 pg (27.0-33.0); Monocytes Percent Auto 12.2 % (2-11); Neutrophils Percent Auto 59.9 % (45-73); Platelet Count 252 X10*3/uL (160-400); Red Blood Count 4.96 X10*6/uL (4.20-5.50); Red Cell Distribution Width 12.5 % (11.0-16.0); White Blood Count 8.3 X10*3/uL (4.8-10.8)
[2021-10-18 17:51] LABS: INTERNATIONAL NORM RATIO 1.4 (0.9-1.1); Prothrombin Time 16.4 SEC (10.0-13.1)
[2021-10-18 17:59] LABS: Anion Gap 16 (12-20); Blood Urea Nitrogen 17 mg/dL (9-16); Calcium 9.7 mg/dL (8.4-10.2); Carbon Dioxide 31 mmol/L (22-29); Chloride 103 mmol/L (96-108); Creatinine Clr Calc Pharmacy 45.5; Estimated Glomerular Filt Rate 50; Glucose Random 105 mg/dL (60-115); Potassium 5.6 mmol/L (3.3-5.1); Sodium 144 mmol/L (135-145)
--- NOTE | 2021-10-18 18:59 | ECG_ITS ---
Test Reason : ABNORMAL LABS Blood Pressure : / mmHG Vent. Rate : 071 BPM Atrial Rate : 000 BPM P-R Int : 000 ms QRS Dur : 090 ms QT Int : 404 ms P-R-T Axes : 000 005 043 degrees QTc Int : 439 ms Atrial fibrillation Nonspecific ST abnormality Abnormal ECG When compared with ECG of 09-MAR-2021 17:09, No significant change was found Referred By: Harrison Agosto Electronically Signed By:PALMA MCCALL MD
[2021-10-18] MEDS: Sodium Zirconium Cyclosilicate 10 GM POWD.PACK PO (19:46)
--- NOTE | 2021-10-18 19:47 | PC.NURSE ---
medicated per provider order.
== END 2021-10-18 19:51 | disposition home or self-care (01) ==
PROVIDERS: Emergency Provider Internal Medicine
DX: R79.89 Other specified abnormal findings of blood chemistry (principal); R04.0 Epistaxis; Z79.899 Other long term (current) drug therapy; Z79.4 Long term (current) use of insulin
CPT/HCPCS: 36415; 80048; 85025; 85610; 93005; 99283; 99284

== ENCOUNTER 2021-10-26 14:59 | Outpatient (REF) | payer MEDICARE, SELFPAY ==
[2021-10-26 16:48] LABS: Anion Gap 15 (12-20); Blood Urea Nitrogen 16 mg/dL (9-16); Calcium 8.9 mg/dL (8.4-10.2); Carbon Dioxide 30 mmol/L (22-29); Chloride 101 mmol/L (96-108); Estimated Glomerular Filt Rate 58; Glucose Random 105 mg/dL (60-115); Sodium 142 mmol/L (135-145)
[2021-10-26 17:36] LABS: Digoxin 0.7 ng/mL (0.8-2.0)
== END 2021-10-26 15:00 | disposition home or self-care (01) ==
LOC: HO.HMGCLDS 14:59
PROVIDERS: PCP Internal Medicine; Visit Provider Internal Medicine
DX: I10 Essential (primary) hypertension (principal); I48.19 Other persistent atrial fibrillation
CPT/HCPCS: 36415; 80048; 80162

== ENCOUNTER 2021-11-13 14:26 | Outpatient (REF) | payer MEDICARE, SELFPAY ==
[2021-11-13 15:30] LABS: Anion Gap 15 (12-20); Blood Urea Nitrogen 24 mg/dL (9-16); Calcium 9.8 mg/dL (8.4-10.2); Carbon Dioxide 30 mmol/L (22-29); Chloride 104 mmol/L (96-108); Estimated Glomerular Filt Rate 51; Glucose Random 112 mg/dL (60-115); Potassium 4.1 mmol/L (3.3-5.1); Sodium 145 mmol/L (135-145)
== END 2021-11-13 14:27 | disposition home or self-care (01) ==
LOC: HO.LAB 14:26
PROVIDERS: PCP Internal Medicine; Visit Provider Internal Medicine
DX: I10 Essential (primary) hypertension (principal)
CPT/HCPCS: 36415; 80048

== ENCOUNTER 2022-07-13 15:28 | Emergency (ER) | payer MEDICARE, SELFPAY ==
--- NOTE | ~2022-07-13 | XR_ITS ---
EXAMINATION: XR CERVICAL SPINE CLINICAL INFORMATION: Neck pain COMPARISON: None available. TECHNIQUE: 4 views of the cervical spine were obtained. FINDINGS: The cervical spine is visualized from C1-C7 level. There is normal alignment. Vertebral body heights are maintained. No acute fracture is seen. Base of the dens appears intact. No prevertebral soft tissue swelling. Multilevel disc degeneration, more prominent changes of moderate disc degeneration at C4-5, C5-6, C6-7. Multilevel facet degeneration. Small calcification along the anterior aspect of the C4-5 disc space, has a chronic appearance. No suspicious findings in lung apices. XR/XR cervical spine 3V IMPRESSION: No radiographic evidence of acute fracture or subluxation. Moderate cervical spondylosis.
--- NOTE | ~2022-07-13 | XR_ITS ---
EXAMINATION: XR SHOULDER, LEFT CLINICAL INFORMATION: Left shoulder pain COMPARISON: None available. TECHNIQUE: AP external rotation, Grashey, scapular Y, and axillary views of the left shoulder. FINDINGS: There appears to bone demineralization. No acute fracture or dislocation is seen. Mild acromioclavicular arthritis. Mild glenohumeral joint arthritis with marginal glenoid spurring. 3 mm calcification adjacent to the humeral head could reflect calcific tendinitis. Small calcification projected adjacent to the medial aspect of the humeral and neck on the frontal projection,, on the additional views appears to be present within the posterior soft tissues. Intact right clavicle. No suspicious findings in the visualized right lung. XR/XR shoulder LT min 2V IMPRESSION: Mild glenohumeral joint arthritis. Mild acromioclavicular arthritis. No radiographic evidence of acute fracture. 3 mm soft tissue calcification, possible calcific tendinitis
--- NOTE | 2022-07-13 15:32 | ECG_ITS ---
Test Reason : left arm pain Blood Pressure : / mmHG Vent. Rate : 067 BPM Atrial Rate : 000 BPM P-R Int : 000 ms QRS Dur : 090 ms QT Int : 412 ms P-R-T Axes : 000 -06 -18 degrees QTc Int : 435 ms Atrial fibrillation Moderate voltage criteria for LVH, may be normal variant ( R in aVL , Steve product ) Nonspecific ST and T wave abnormality Abnormal ECG When compared with ECG of 18-OCT-2021 19:30, Nonspecific T wave abnormality, worse in Lateral leads Referred By: Claudia Noyola Electronically Signed By:Bennett Chow
--- NOTE | 2022-07-13 16:06 | ED.UPPEXIN ---
HPI - Extremity Injury (Upper) General Chief Complaint: Extremity Problem Stated Complaint: L shoulder pain/Unable to move it much Time Seen by Provider: 07/13/22 19:31 Source: patient Mode of arrival: ambulatory History of Present Illness HPI narrative: 77-year-old female with past medical history of AFib on Xarelto, CHF, COPD, depression CHF, c/o L shoulder pain x 1 mos with radiation to left neck. Admits has been trying to exercise x2 weeks but then developed pain. Denies direct injury/trauma or fall, numbness, tingling, weakness, CP/SOB, headache, vision change/loss MD complaint: injury to: left Onset (ago): week(s) Related Data Home Medications Medication Instructions Recorded Confirmed albuterol sulfate 90 mcg/actuation 2 puff inhalation Q4-6H PRN 02/24/20 02/01/22 aerosol inhaler bimatoprost 0.01 % eye drops drp ophthalmic (eye) 02/24/20 02/01/22 fluticasone 500 mcg-salmeterol 50 2 ea inhalation Q12H 02/24/20 02/01/22 mcg/dose blistr powdr for inhalation timolol maleate 0.5 % eye drops drp ophthalmic (eye) 02/24/20 02/01/22 biotin 10,000 mcg capsule mcg PO 10/26/21 02/01/22 perit. dialysis 3-4.25 % dextr ml intraperitoneal 10/26/21 10/26/21 (Dianeal PD-2 with 4.25 % dex) zinc acetate 50 mg (zinc) capsule 50 mg PO DAILY 10/26/21 02/01/22 (Galzin) hydrochlorothiazide 25 mg tablet 25 mg PO DAILY 02/01/22 02/01/22 potassium chloride 20 mEq oral 20 meq PO .3 times a week 02/01/22 02/01/22 packet Previous Rx's Medication Instructions Recorded diltiazem HCl 240 mg 240 mg PO QAM #90 caps 07/19/21 capsule,extended release 24 hr digoxin 125 mcg (0.125 mg) tablet 125 mcg PO DAILY #90 tabs 04/02/22 metoprolol succinate 25 mg 25 mg PO DAILY #90 tabs 04/02/22 tablet,extended release 24 hr rivaroxaban 20 mg tablet (Xarelto) 20 mg PO DAILY #90 tabs 06/15/22 sertraline 100 mg tablet 100 mg PO DAILY #14 tabs 07/03/22 valsartan 80 mg tablet 80 mg PO BID #180 tabs 07/03/22 cyclobenzaprine 5 mg tablet 5 mg PO Q8H PRN pain (scale score 07/13/22 7-10) 5 days #14 tabs diclofenac sodium 1 % topical gel 2 g topical QID #100 grams 07/13/22 (Arthritis Pain (diclofenac)) Allergies Allergy/AdvReac Type Severity Reaction Status Date / Time losartan Allergy Unknown palp Verified 02/01/22 12:42 pseudoephedrine [Sudafed] Allergy Unknown Unknown Verified 02/01/22 12:42 acetaminophen [From Percocet] Allergy Unknown Verified 02/01/22 12:42 rivaroxaban [From Xarelto] AdvReac Intermediate Nose Bleed Verified 02/01/22 12:42 oxycodone [OXYCODONE] AdvReac Mild NAUSEA & Verified 02/01/22 12:42 VOMITING Review of Systems Review of Systems: Constitutional: No Fever, No Chills ENT/Mouth: No Ear Pain, No Nasal Congestion, No Sinus Pain, No Hoarseness, No sore throat, No Rhinorrhea, No Swallowing Difficulty Cardiovascular: No Chest Pain, No SOB Respiratory: No Cough Gastrointestinal: No Nausea, No Vomiting, No Diarrhea, No Constipation, No Abdominal pain Genitourinary: No Dysuria, No Urinary Frequency, No Urinary Incontinence/retention Musculoskeletal: +joint pain, No Myalgias, No Joint Swelling Skin: No Skin Lesions, No rash Neuro: No Weakness, No Numbness, No Paresthesias, no headache Yes all other systems are reviewed and are negative Constitutional: Constitutional: Reports as per [facility] Past Medical History Attestation statement: The following information was validated with the patient. Medical History Allergic rhinitis Atrial fibrillation CHF (congestive heart failure) COPD (chronic obstructive pulmonary disease) Depression Glaucoma Heart failure with preserved ejection fraction Hypertension Neck pain Osteopenia Persistent atrial fibrillation Surgical History History of cardiac radiofrequency ablation History of cardioversion Family History Family History Father No problems noted. Mother No problems noted. Social History Social History Housing: House Alcohol intake: current Alcohol intake frequency: holidays/special occasions only Patient Tobacco Use Status: Never used Tobacco e-Cigarette/Vaping Use: Never Used Advance Directives: No Advance Directives Information Provided: No Current occupational status: retired Cognitive needs: No Hearing needs: No Vision needs: No Physical Exam Vital Signs: Vital Signs: Last Vital Signs Temp 97.4 F 07/13/22 16:07 Pulse 69 07/13/22 16:07 Resp 17 07/13/22 16:07 BP 144/86 H 07/13/22 16:07 Pulse Ox 94 07/13/22 16:07 O2 Del Method Room Air 07/13/22 16:07 BMI result Body Mass Index 35.5 Const: General: cooperative, healthy appearing and no acute distress Orientation/consciousness: patient oriented x3 Limitations: no limitations HEENT: Head: Yes normal to inspection and Yes atraumatic Ears: hearing grossly normal bilaterally General nose exam: Normal external nose present Face and sinus: Yes normal facial exam Eyes: General: appearance normal, both eyes and all related structures EOM: EOMs intact bilaterally Neck: Other: No midline cervical spinous tenderness. + left-sided paraspinal/trapezius muscle tenderness to palpation reproducing subjective complaint Neck: Yes normal visual inspection, Yes full ROM, Yes no meningeal signs and No anterior neck swelling Resp: Effort & Inspection: normal respiratory effort and no respiratory distress Cardio: Rate: regular rate Peripheral pulses: Peripheral pulses 2+ throughout Back/Spine/Pelvis: Other: No midline cervical/thoracic/lumbar spinous tenderness/step-off or deformity Skin: Rashes: no rashes Wounds: no wounds Neuro: General: patient oriented x3, gait normal, tone normal, moves all extremities, no meningeal signs, no focal motor deficits and CN's II-XI intact bilaterally Gait exam (Neuro): Normal gait present Extrem: Other: Left shoulder without noted deformity. Diffusely tender to palpation. No erythema/warmth. ROM limited secondary to pain. NV intact distally General: Yes normal to inspection Course Course Course Narrative: RME: 77 year old female with past medical history of AFib on Xarelto, CHF, COPD, depression CHF, c/o L shoulder pain x 1 mos. Admits has been trying to exercise x2 weeks but then developed pain. +L trapezius muscle & shoulder ttp. ROM intact w/pain EKG, XRs ordered Full HPI, ROS and PE to be performed by primary ED provider. XR shoulder LT min 2V IMPRESSION: Mild glenohumeral joint arthritis. Mild acromioclavicular arthritis. No radiographic evidence of acute fracture. 3 mm soft tissue calcification, possible calcific tendinitis XR cervical spine 3V IMPRESSION: No radiographic evidence of acute fracture or subluxation. Moderate cervical spondylosis. Results discussed with patient including worrisome signs and symptoms and strict return precautions, and when to return to the emergency department. They verbalized understanding and feel safe for discharge at this time. Medical Decision Making Medical Decision Making [facility] Narrative: 77-year-old female with past medical history of AFib on Xarelto, CHF, COPD, depression CHF, c/o L shoulder pain x 1 mos with radiation to left neck. On exam vital signs stable, NAD, nontoxic appearing with physical exam as noted above with MSK reproducible tenderness and left shoulder tenderness. No midline spinous tenderness or red flag symptoms. No focal deficits. Concern for MSK pain/strain vs tendinitis vs rotator cuff injury or tendon/ligamental injury. Lower suspicion for fracture. No evidence of septic joint/arthritis. Low suspicion for cervical dissection Plan: X-rays Please refer to course for remaining clinical decision making, interpretation of labs/imaging results, and discussions with consultants and/or family members. Differential Diagnosis Differential Diagnoses: The differential diagnosis associated with the presentation includes As above Lab Data [facility] Lab Attestation statement: I reviewed the patient's lab results. Independent Interpretation I performed an independent interpretation of an: EKG (EKG AFib at a rate of 67. QTC 435. Nonspecific ST/T-wave abnormality no STEMI ) Radiology Impression Discussion of test interpretation with radiology: I have reviewed the radiologist's reading. External Record Review External record reviewed: Inpatient record, Office record, Outpatient record, Prior outpatient labs, Prior outpatient radiology, Primary care record and Outside ED record Discharge Plan Discharge Clinical Impression: Calcific tendinitis Patient Disposition: Home, Self-Care Instructions: Tendinitis (ED) Additional Instructions: Your x-ray is suggestive of arthritis as well as calcific tendinitis Tylenol will help with pain. In addition topical diclofenac is an anti-inflammatory/pain medication Flexeril is a muscle relaxer, take at night as it makes you drowsy, do not drive, drink alcohol, or operate machinery while taking it In addition take Tylenol at home If symptoms persist or worsen, pain becomes unbearable, you developed urinary retention or incontinence, or weakness return to the ED Please follow-up with your doctor and Orthopedics If you develop persistent worsening pain, chest pain or shortness of breath return to the ED Prescriptions: New cyclobenzaprine 5 mg tablet 5 mg PO Q8H PRN (Reason: pain (scale score 7-10)) 5 Days Qty: 14 0RF diclofenac sodium [Arthritis Pain (diclofenac)] 1 % gel 2 g topical QID Qty: 100 0RF Rx Instructions: apply to single elbow, wrist or hand; for hand includes palm/fingers/back of hand No Action metoprolol succinate 25 mg tablet extended release 24 hr 25 mg PO DAILY Qty: 90 3RF digoxin 125 mcg (0.125 mg) tablet 125 mcg PO DAILY Qty: 90 3RF Xarelto 20 mg tablet 20 mg PO DAILY Qty: 90 0RF Rx Instructions: Must make cardiology appt for refills valsartan 80 mg tablet 80 mg PO BID Qty: 180 3RF sertraline 100 mg tablet 100 mg PO DAILY Qty: 14 0RF Rx Instructions: To cover until mail order arrives biotin 10,000 mcg capsule PO Galzin 50 mg (zinc) capsule 50 mg PO DAILY Dianeal PD-2 with 4.25 % dex Ca 3.5 mEq/L- Mg 0.5 mEq/L solution intraperitoneal hydrochlorothiazide 25 mg tablet 25 mg PO DAILY potassium chloride 20 mEq packet 20 meq PO .3 times a week Lumigan 0.01 % drops ophthalmic (eye) timolol maleate 0.5 % drops ophthalmic (eye) fluticasone propion-salmeterol 500-50 mcg/dose blister with device 2 ea inhalation Q12H albuterol sulfate 90 mcg/actuation HFA aerosol inhaler 2 puff inhalation Q4-6H PRN diltiazem HCl 240 mg capsule,extended release 24hr 240 mg PO QAM Qty: 90 3RF Referrals: [facility] [place] [facility] Surgeons [Provider Group] - 1 week Mariela Beltran MD [Primary Care Provider] - 5 days
[2022-07-13 16:07] VITALS: BP 144/86; PULSE 69; RESP 17; TEMP 36.3; O2SAT 94; BMI 35.5
--- NOTE | 2022-07-13 19:40 | PC.NURSE ---
Provider (Claudia TINAJERO) at bedside speaking with patient regarding imaging results and discharge plan. Pt verbalized understanding and awaiting discharge paperwork.
== END 2022-07-13 20:10 | disposition home or self-care (01) ==
PROVIDERS: Emergency Provider Emergency Medicine; PCP Internal Medicine
DX: M75.32 Calcific tendinitis of left shoulder (principal); I48.19 Other persistent atrial fibrillation; I11.0 Hypertensive heart disease with heart failure; I50.30 Unspecified diastolic (congestive) heart failure; Z79.01 Long term (current) use of anticoagulants
CPT/HCPCS: 72040; 73030; 93005; 99282; 99283

== ENCOUNTER 2022-10-31 13:08 | Outpatient (REF) | payer MEDICARE, SELFPAY ==
[2022-10-31 13:25] LABS: MANUAL DIFF FLAG NO
[2022-10-31 13:36] LABS: Basophils Absolute Auto 0.1 X10*3/uL (0.0-0.2); Basophils Percent Auto 0.7 % (0-2); Eosinophils Absolute Auto 0.3 X10*3/uL (0.0-0.4); Eosinophils Percent Auto 3.1 % (0-4); Hematocrit 43.3 % (37.0-47.0); Hemoglobin 14.1 g/dl (12.0-16.0); Imm Gran Abs Auto 0.04 X10*3/uL (0.00-0.03); Imm Gran Pct Auto 0.4 % (0.0-0.4); Lymphocytes Absolute Auto 1.5 X10*3/uL (1.2-4.9); Lymphocytes Percent Auto 14.8 % (20-40); Mean Corpuscular HGB Conc 32.6 g/dl (31.0-35.0); Mean Corpuscular Hemoglobin 31.1 pg (27.0-33.0); Mean Corpuscular Volume 95.6 fL (80.0-98.0); Mean Platelet Volume 9.5 fL (9.4-12.3); Monocytes Absolute Auto 1.3 X10*3/uL (0.1-1.2); Monocytes Percent Auto 12.2 % (2-11); Neutrophils Percent Auto 68.8 % (45-73); Platelet Count 264 X10*3/uL (160-400); Red Blood Count 4.53 X10*6/uL (4.20-5.50); Red Cell Distribution Width 12.9 % (11.0-16.0); White Blood Count 10.2 X10*3/uL (4.8-10.8)
[2022-10-31 14:46] LABS: Alanine Aminotransferase 19 U/L (0-31); Albumin Level 3.8 g/dL (3.5-5.0); Alkaline Phosphatase 162 U/L (39-117); Anion Gap 13 (12-20); Aspartate Amino Transferase 23 U/L (5-31); Bilirubin Direct 0.2 mg/dL (0.0-0.5); Bilirubin Total 0.5 mg/dL (0.0-1.0); Blood Urea Nitrogen 21 mg/dL (9-16); Calcium 9.6 mg/dL (8.4-10.2); Carbon Dioxide 33 mmol/L (22-29); Chloride 100 mmol/L (96-108); Estimated Glomerular Filt Rate > 60; Glucose Random 97 mg/dL (60-115); Potassium 3.5 mmol/L (3.3-5.1); Sodium 142 mmol/L (135-145); Total Protein 7.7 g/dL (6.5-8.0)
== END 2022-10-31 13:09 | disposition home or self-care (01) ==
LOC: HO.LAB 13:08
PROVIDERS: PCP Internal Medicine; Referring Provider Internal Medicine; Visit Provider Internal Medicine
DX: J45.909 Unspecified asthma, uncomplicated (principal)
CPT/HCPCS: 36415; 80048; 80076; 85025

== ENCOUNTER 2022-11-22 12:43 | Outpatient (AMB) | payer MEDICARE, SELFPAY ==
--- NOTE | 2022-11-22 12:58 | MHC.PC.OV ---
Vital Signs 11/22/22 12:59 Height 5 ft 3 in Weight 201 lb 2 oz BMI 35.6 BP 128/68 Blood Pressure Location Lt brachial Position Sitting Pulse 65 Pulse Source Pulse Oximeter Pulse Oximetry (%) 95 Oxygen Delivery Method Room Air Intake Visit Reasons: New patient-High BP/transfer of care Dr Beltran Intake Note: Patient is a new patient here to establish care for [symptoms]. Transferring care from [provider name]. Medical records [have/have not] been requested and [have/have not] received. E Commerce Marketing Analyst Required: No Certified Veterinary Technician: Not Required per policy Accompanied by: Self / Same As Patient Allergies losartan Allergy (Unknown, Verified 11/22/22 13:12) palp pseudoephedrine [Sudafed] Allergy (Unknown, Verified 11/22/22 13:12) Unknown acetaminophen [From Percocet] Allergy (Verified 11/22/22 13:12) Unknown rivaroxaban [From Xarelto] Adverse Reaction (Intermediate, Verified 11/22/22 13:12) Nose Bleed oxycodone [OXYCODONE] Adverse Reaction (Mild, Verified 11/22/22 13:12) NAUSEA & VOMITING Medication List - Last Reconciled 11/22/22 by ERIC Quintero albuterol sulfate 90 mcg/actuation 2 puffs inhalation Q4-6H PRN bimatoprost 0.01% drvalerie ophthalmic (eye) biotin mcg PO digoxin 125 mcg PO DAILY diltiazem HCl 240 mg PO QAM fluticasone propion-salmeterol 500-50 mcg/dose 2 ea inhalation Q12H hydrochlorothiazide 25 mg PO DAILY metoprolol succinate ER 25 mg PO DAILY perit. dialysis 3-4.25 % dextr (Dianeal PD-2 with 4.25 % dex) mL intraperitoneal potassium chloride 20 mEq PO .3 times a week rivaroxaban (Xarelto) 20 mg PO DAILY sertraline 100 mg PO DAILY timolol maleate 0.5% drps ophthalmic (eye) valsartan 80 mg PO BID zinc acetate (Galzin) 50 mg PO DAILY Tobacco use date assessed: 11/22/22 Fall risk assessment: No Falls in past year Last assessed Fall Risk: 11/22/22 Dental Screening Dental Screen Date: 11/22/22 Did you have a dental visit in the last 12 months?: Yes Did you have a dental problem in the last 6 months where you did not have access to dental care?: No Was dental information given to patient?: Patient has dentist HPI HPI Comments History of Present Illness Details [age] year old female presents today for a transfer care from Dr. Beltran. Past history significant for persistent AFib, for failure preserved EF, COPD, hypertension and lumbar degenerative joint disease. Patient denies any acute complaint. Denies chest pain, palpitations, shortness of breath syncope. Denies any need for any refills at this time. Patient reports currently follws with Or Nurse Manager [facility]: Dr. Stewart. Follow with Dr Kapoor Pulmonologly for COPD, patient reports on Advair and has not required the use of her rescue inhaler in over 5 months [facility] Medical History Allergic rhinitis Neck pain Heart failure with preserved ejection fraction Persistent atrial fibrillation Glaucoma Osteopenia Hypertension Depression CHF (congestive heart failure) COPD (chronic obstructive pulmonary disease) Atrial fibrillation Surgical History History of cardioversion History of cardiac radiofrequency ablation Family History Father No problems noted. Mother No problems noted. Social History (Updated 11/22/22 @ 13:17 by ERIC Quintero) Housing: House Alcohol intake: current Alcohol intake frequency: a few times a week Alcohol type: wine Patient Tobacco Use Status: Never used Tobacco e-Cigarette/Vaping Use: Never Used Second Hand Smoke Exposure: No service: No Current occupational status: retired Cognitive needs: No Hearing needs: No Vision needs: No Questionnaire PHQ-9 Over the last 2 weeks, how often have you been bothered by any of the following problems? 1. Little interest or pleasure in doing things: not at all 2. Feeling down, depressed, or hopeless: not at all 3. Trouble falling or staying asleep, or sleeping too much: not at all 4. Feeling tired or having little energy: several days 5. Poor appetite or overeating: not at all 6. Feeling bad about yourself - or that you are a failure or have let yourself or your family down: not at all 7. Trouble concentrating on things, such as reading the newspaper or watching television: not at all 8. Moving or speaking so slowly that other people could have noticed. Or the opposite - being so fidgety or restless that you have been moving around a lot more than usual: not at all 9. Thoughts that you would be better off or of hurting yourself in some way: not at all Total score: 1 Depression Screening Interpretation: Negative Source: Developed by Drs. Otis Guzman, Parvin Small, Amari Reed and colleagues, with an educational krysten from [employer]. Thrive Questionnaire Date Thrive assessed: 11/22/22 I am a: Patient What is your living situation today?: I have a steady place to live Within the past 12 months, did the food you bought not last and you didn't have the money to get more?: Never true Within the past 12 months, did you worry whether your food would run out before you got money to buy more?: Never true Do you have trouble paying for medicines?: No Do you have trouble getting transportation to medical appointments?: No Do you have trouble paying your heating and electricity bill?: No Do you have trouble taking care of your child, family member or friend?: No Do you have trouble with day-to-day activities such as bathing, preparing meals, shopping, managing finances, etc.?: No Are you currently unemployed and looking for a job?: No Are you interested in more education?: No Currently or been in a relationship where the following occur: no concerns reported AUDIT C Alcohol Use Questionnaire (AUDIT-C) 1. How often do you have a drink containing alcohol?: Monthly or less 2. How many drinks containing alcohol do you have on a typical day when you are drinking?: 1 or 2 Total Score: 1 MYLA-7 AMB Questionnaire MYLA-7 Date MYLA - 7 assessed: 11/22/22 Feeling nervous, anxious, or on edge: 0 = Not at all Not being able to stop or control worryin = Not at all Worrying too much about different things: 0 = Not at all Trouble relaxin = Not at all Being so restless that it is hard to sit still: 0 = Not at all Becoming easily annoyed or irritable: 0 = Not at all Feeling afraid as if something awful might happen: 0 = Not at all Total MYLA-7 score (0-4 normal; 5-9 mild; 10-14 moderate; 15-21 severe): 0 Source: Developed by Drs. Otis Guzman, Parvin Small, Amari Reed and colleagues, with an educational krysten from [employer]. Review of Systems Const Denies chills, Denies fatigue, Denies fever(s) and Denies poor appetite Eyes Denies no additional complaints ENT Reports Normal hearing present Card Denies chest pain, Denies syncope, Denies rapid heart rate and Denies dyspnea Resp Denies cough and Denies dyspnea GI Denies change in stool character, Denies constipation, Denies diarrhea, Denies nausea and Denies vomiting Denies urinary frequency, Denies dysuria and Denies urinary urgency Neuro Reports Normal hearing present, Denies confusion and Denies syncope Psych Denies confusion Endo Denies fatigue Physical exam (Primary Care) Vital Signs: Last Vital Signs Pulse 65 11/22/22 12:59 BP 128/68 11/22/22 12:59 Pulse Ox 95 11/22/22 12:59 Oxygen Delivery Method Room Air 11/22/22 12:59 BMI result Body Mass Index 35.6 Tobacco/Smoking Status: Tobacco use Status Tobacco use date assessed 11/22/22 11/22/22 13:01 Patient Tobacco Use Status Never used Tobacco 11/22/22 13:17 e-Cigarette/Vaping Use Never Used 11/22/22 13:17 PHQ-9: PHQ-9 Score PHQ-9: Total score 1 11/22/22 13:18 Depression Screening Interpretation: Negative Thrive Assessment: Date of Thrive Assessment Date Thrive assessed 11/22/22 11/22/22 13:01 Currently or been in a relationship where the following occur: no concerns reported Const General: No confusion Orientation/consciousness: No confusion HENMT Head: Yes normocephalic and Yes atraumatic Eyes Conjunctivae: conjunctivae normal Chest Chest palpation & inspection: normal inspection of the chest Resp Effort & Inspection: normal respiratory effort Auscultation: clear to auscultation bilaterally, no crackles, no rhonchi and no wheezes Cardio Rate: regular rate Rhythm: regular rhythm Heart sounds: S1 normal heart sound present and S2 normal heart sound present GI Inspection: Yes normal to inspection Neuro General: No confusion Cranial nerves: Yes Normal hearing present Extrem General: No edema Assessment and Plan Assessment & Plan (1) COPD (chronic obstructive pulmonary disease): Comment: f/u Dr. Kapoor Code(s): J44.9 - Chronic obstructive pulmonary disease, unspecified Plan: Continue on current inhalers. Continue to follow with pulmonology. (2) Heart failure with preserved ejection fraction: Comment: Follow-up with Cardiology Code(s): I50.30 - Unspecified diastolic (congestive) heart failure Qualifiers: Heart failure chronicity: chronic Qualified Code(s): I50.32 - Chronic diastolic (congestive) heart failure Plan: Continue to follow with conveyor belt installer Continue on diltiazem and digoxin. (3) Persistent atrial fibrillation: Code(s): I48.19 - Other persistent atrial fibrillation Plan: Continue on current rate control medications Xarelto for anticoagulation. Continue to follow with Cardiology. (4) Essential hypertension: Code(s): I10 - Essential (primary) hypertension Plan: Continue on valsartan and hydrochlorothiazide. Follow low-salt diet exercise. Blood pressure below goal today in office. Plan Follow-up in 3 months for complete physical exam. Coding Level of Care Code Est Pt Level 4 (36688) Diagnoses COPD (chronic obstructive pulmonary disease) J44.9 Chronic heart failure with preserved ejection fraction I50.32 Heart failure chronicity: chronic Persistent atrial fibrillation I48.19 Essential hypertension I10
[2022-11-22 12:59] VITALS: BP 128/68; PULSE 65; O2SAT 95; BMI 35.6
== END 2022-11-22 13:35 | disposition home or self-care (01) ==
PROVIDERS: PCP Internal Medicine; Visit Provider Nurse Practitioner Family
DX: J44.9 Chronic obstructive pulmonary disease, unspecified (principal); I11.0 Hypertensive heart disease with heart failure; I50.32 Chronic diastolic (congestive) heart failure; I48.19 Other persistent atrial fibrillation
CPT/HCPCS: 99214

== ENCOUNTER 2023-02-20 09:00 | Outpatient (AMB) | payer MEDICARE, SELFPAY ==
[2023-02-20 09:10] VITALS: BP 140/72; PULSE 75; O2SAT 94; BMI 35.6
--- NOTE | 2023-02-20 09:10 | A.OFFPC_ITS ---
Vital Signs 02/20/23 09:10 Height 5 ft 3 in Weight 201 lb 0.4 oz BMI 35.6 BP 140/72 H Blood Pressure Location Lt brachial Position Sitting Pulse 75 Pulse Source Pulse Oximeter Pulse Oximetry (%) 94 Oxygen Delivery Method Room Air Intake Visit Reasons: Transfer of care [facility]/ follow up Allergies losartan Allergy (Unknown, Verified 02/20/23 09:15) palp pseudoephedrine [Sudafed] Allergy (Unknown, Verified 02/20/23 09:15) Unknown acetaminophen [From Percocet] Allergy (Verified 02/20/23 09:15) Unknown rivaroxaban [From Xarelto] Adverse Reaction (Intermediate, Verified 02/20/23 09:15) Nose Bleed oxycodone [OXYCODONE] Adverse Reaction (Mild, Verified 02/20/23 09:15) NAUSEA & VOMITING Medication List - Last Reconciled 02/20/23 by ERIC Oakley albuterol sulfate 90 mcg/actuation 2 puffs inhalation Q4-6H PRN bimatoprost 0.01% drvalerie ophthalmic (eye) biotin mcg PO digoxin 125 mcg PO DAILY diltiazem HCl 240 mg PO QAM fluticasone propion-salmeterol 500-50 mcg/dose 2 ea inhalation Q12H hydrochlorothiazide 25 mg PO DAILY metoprolol succinate ER 25 mg PO DAILY perit. dialysis 3-4.25 % dextr (Dianeal PD-2 with 4.25 % dex) mL intraperitoneal potassium chloride 20 mEq PO .3 times a week rivaroxaban (Xarelto) 20 mg PO DAILY sertraline 100 mg PO DAILY timolol maleate 0.5% drvalerie ophthalmic (eye) valsartan 80 mg PO BID zinc acetate (Galzin) 50 mg PO DAILY Tobacco use date assessed: 02/20/23 Fall risk assessment: No Falls in past year Last assessed Fall Risk: 02/20/23 Dental Screening Dental Screen Date: 02/20/23 HPI Transfer of care [facility]/ follow up HPI Details Patient is an 78-year-old female who presents today for a routine follow-up. Last time seen by FANG Pedraza. Medical history significant for AFib-followed by Cardiology Dr. Zelaya - patient reports that she will establish with [facility], heart failure, hypertension, COPD-followed by Dr. Kapoor. Patient reports that she is compliant with medications and denies side effects. No concerns at this time. [facility] Medical History (Updated 02/20/23 @ 13:37 by ERIC Oakley) Allergic rhinitis Neck pain Heart failure with preserved ejection fraction Persistent atrial fibrillation Glaucoma Osteopenia Hypertension Depression CHF (congestive heart failure) COPD (chronic obstructive pulmonary disease) Atrial fibrillation Surgical History History of cardioversion History of cardiac radiofrequency ablation Family History Father No problems noted. Mother No problems noted. Social History Housing: House Alcohol intake: current Alcohol intake frequency: a few times a week Alcohol type: wine Patient Tobacco Use Status: Never used Tobacco e-Cigarette/Vaping Use: Never Used Second Hand Smoke Exposure: No service: No Current occupational status: retired Cognitive needs: No Hearing needs: No Vision needs: No Questionnaire Thrive Questionnaire Date Thrive assessed: 11/22/22 AUDIT C Alcohol Use Questionnaire (AUDIT-C) 1. How often do you have a drink containing alcohol?: Monthly or less 2. How many drinks containing alcohol do you have on a typical day when you are drinking?: 1 or 2 Total Score: 1 Score Reviewed/Action Taken: No MYLA-7 AMB Questionnaire MYAL-7 Date MYLA - 7 assessed: 11/22/22 Source: Developed by Drs. Otis Guzman, Parvin Small, Amari Reed and colleagues, with an educational krysten from [employer]. Review of Systems Const Denies body aches, Denies chills, Denies fever(s) and Denies headache(s) ENT Denies dizziness, Denies otalgia, Denies headache(s), Denies nasal discharge, Denies sinus pain and Denies sore throat Card Denies chest pain, Denies edema, Denies lightheadedness and Denies dyspnea Resp Denies cough, Denies dyspnea and Denies wheezing GI Denies abdominal pain Denies dysuria Musc Denies myalgias Neuro Denies dizziness and Denies headache(s) Aller/Immun Denies wheezing Physical exam (Primary Care) Vital Signs: Last Vital Signs Pulse 75 02/20/23 09:10 BP 140/72 H 02/20/23 09:10 Pulse Ox 94 02/20/23 09:10 Oxygen Delivery Method Room Air 02/20/23 09:10 BMI result Body Mass Index 35.6 Tobacco/Smoking Status: Tobacco use Status Tobacco use date assessed 02/20/23 02/20/23 09:14 Patient Tobacco Use Status Never used Tobacco 02/20/23 09:14 e-Cigarette/Vaping Use Never Used 02/20/23 09:14 Thrive Assessment: Date of Thrive Assessment Date Thrive assessed 11/22/22 02/20/23 09:14 Const General: cooperative and no acute distress Orientation/consciousness: patient oriented x3 HENMT Head: Yes normocephalic and Yes atraumatic Face and sinus: Yes sinuses nontender Mouth: oropharynx normal and moist mucous membranes Throat: Yes posterior oropharynx normal Eyes General: appearance normal, both eyes and all related structures Neck Neck: Yes normal visual inspection and Yes full ROM Resp Effort & Inspection: normal respiratory effort and able to speak in complete sentences Auscultation: clear to auscultation bilaterally, no crackles, no rales, no rhonchi and no wheezes Cardio Rate: regular rate Rhythm: abnormal rhythm irregularly irregular Heart sounds: S1 normal heart sound present and S2 normal heart sound present GI Auscultation: normal bowel sounds Skin General skin exam: no rashes or lesions noted Neuro General: patient oriented x3 Gait exam (Neuro): Normal gait present Extrem General: Yes full ROM and No edema Assessment and Plan Assessment & Plan (1) COPD (chronic obstructive pulmonary disease): Comment: f/u Dr. Kapoor Code(s): J44.9 - Chronic obstructive pulmonary disease, unspecified Plan: Continue current inhalers Continue to follow-up with pulmonology Stable (2) Essential hypertension: Code(s): I10 - Essential (primary) hypertension Plan: Goal BP equal or less than 140/90 Continue diltiazem, hydrochlorothiazide, metoprolol, valsartan Low-sodium diet Continue to follow-up with cardiology (3) Heart failure with preserved ejection fraction: Comment: Follow-up with Cardiology Code(s): I50.30 - Unspecified diastolic (congestive) heart failure Qualifiers: Heart failure chronicity: chronic Qualified Code(s): I50.32 - Chronic diastolic (congestive) heart failure Plan: Continue current treatment Continue to follow-up with cardiology (4) Persistent atrial fibrillation: Code(s): I48.19 - Other persistent atrial fibrillation Plan: Continue to follow-up with cardiology Continue metoprolol and Xarelto (5) Depression: Code(s): F32.9 - Major depressive disorder, single episode, unspecified Plan: Stable with sertraline Plan Follow-up in 3 months Orders: Orders TSH reflex Free T4 3 Months I10 - Essential (primary) hypertension Lipid Panel 3 Months I10 - Essential (primary) hypertension Comprehensive [place]. Panel Fast 3 Months I10 - Essential (primary) hypertension Coding Level of Care Code Est Pt Level 4 (71371) Diagnoses COPD (chronic obstructive pulmonary disease) J44.9 Essential hypertension I10 Chronic heart failure with preserved ejection fraction I50.32 Heart failure chronicity: chronic Persistent atrial fibrillation I48.19 Depression F32.9
== END 2023-02-20 09:32 | disposition home or self-care (01) ==
PROVIDERS: PCP Internal Medicine; Visit Provider Nurse Practitioner Family
DX: J44.9 Chronic obstructive pulmonary disease, unspecified (principal); I11.0 Hypertensive heart disease with heart failure; I50.32 Chronic diastolic (congestive) heart failure; I48.19 Other persistent atrial fibrillation; F33.9 Major depressive disorder, recurrent, unspecified
CPT/HCPCS: 99214

== ENCOUNTER 2023-05-29 12:56 | Outpatient (AMB) | payer MEDICARE, SELFPAY ==
--- NOTE | 2023-05-29 13:02 | MHC.PC.OV ---
Vital Signs 05/29/23 13:04 Height 5 ft 3 in Weight 199 lb 6 oz BMI 35.3 BP 120/70 Blood Pressure Location Lt brachial Position Sitting Pulse 92 Pulse Source Pulse Oximeter Pulse Oximetry (%) 96 Oxygen Delivery Method Room Air Intake Visit Reasons: F/U on afib HTN Intake Note: Patient is here to follow up on Afib, HTN. Agricultural Chemist Required: No Shoe Repair Supervisor: Not Required per policy Accompanied by: Self / Same As Patient Allergies losartan Allergy (Unknown, Verified 05/29/23 13:30) palp pseudoephedrine [Sudafed] Allergy (Unknown, Verified 05/29/23 13:30) Unknown acetaminophen [From Percocet] Allergy (Verified 05/29/23 13:30) Unknown rivaroxaban [From Xarelto] Adverse Reaction (Intermediate, Verified 05/29/23 13:30) Nose Bleed oxycodone [OXYCODONE] Adverse Reaction (Mild, Verified 05/29/23 13:30) NAUSEA & VOMITING Medication List - Last Reconciled 05/29/23 by Christiano Pearson MD albuterol sulfate 90 mcg/actuation 2 puffs inhalation Q4-6H PRN bimatoprost 0.01% drps ophthalmic (eye) biotin mcg PO digoxin 125 mcg PO DAILY diltiazem HCl 240 mg PO QAM fluticasone propion-salmeterol 500-50 mcg/dose 2 ea inhalation Q12H hydrochlorothiazide 25 mg PO DAILY metoprolol succinate ER 25 mg PO DAILY perit. dialysis 3-4.25 % dextr (Dianeal PD-2 with 4.25 % dex) mL intraperitoneal potassium chloride 20 mEq PO .3 times a week rivaroxaban (Xarelto) 20 mg PO DAILY sertraline 100 mg PO DAILY timolol maleate 0.5% drps ophthalmic (eye) valsartan 80 mg PO BID zinc acetate (Galzin) 50 mg PO DAILY Tobacco use date assessed: 05/29/23 Fall risk assessment: No Falls in past year Last assessed Fall Risk: 05/29/23 Dental Screening Dental Screen Date: 05/29/23 Did you have a dental visit in the last 12 months?: Yes Did you have a dental problem in the last 6 months where you did not have access to dental care?: No Was dental information given to patient?: Patient has dentist HPI F/U on afib HTN HPI Details 78-year-old female presents to the office to discuss her medical condition. I will be assuming her care as her primary care has left the practice. Patient has history of atrial fibrillation. She sees a lead nuclear medicine technologist in [facility]. Patient is on blood thinners and calcium channel candelario. Able to function and do activities of daily living. She gave up driving. She lives alone. [facility] Medical History (Updated 05/29/23 @ 13:33 by Christiano Pearson MD) CHF (congestive heart failure) Allergic rhinitis Neck pain Heart failure with preserved ejection fraction Persistent atrial fibrillation Glaucoma Osteopenia Hypertension Depression COPD (chronic obstructive pulmonary disease) Atrial fibrillation Surgical History History of cardioversion History of cardiac radiofrequency ablation Family History Father No problems noted. Mother No problems noted. Social History Housing: House Alcohol intake: current Alcohol intake frequency: a few times a week Alcohol type: wine Patient Tobacco Use Status: Never used Tobacco e-Cigarette/Vaping Use: Never Used Second Hand Smoke Exposure: No service: No Current occupational status: retired Cognitive needs: No Hearing needs: No Vision needs: Yes (Glasses) Questionnaire PHQ-9 Over the last 2 weeks, how often have you been bothered by any of the following problems? 1. Little interest or pleasure in doing things: not at all 2. Feeling down, depressed, or hopeless: not at all 3. Trouble falling or staying asleep, or sleeping too much: not at all 4. Feeling tired or having little energy: not at all 5. Poor appetite or overeating: not at all 6. Feeling bad about yourself - or that you are a failure or have let yourself or your family down: not at all 7. Trouble concentrating on things, such as reading the newspaper or watching television: not at all 8. Moving or speaking so slowly that other people could have noticed. Or the opposite - being so fidgety or restless that you have been moving around a lot more than usual: not at all 9. Thoughts that you would be better off or of hurting yourself in some way: not at all Total score: 0 Depression Screening Interpretation: Negative Depression Screening Done: Yes Source: Developed by Drs. Otis Guzman, Parvin Small, Amari Reed and colleagues, with an educational krysten from [employer]. Thrive Questionnaire Date Thrive assessed: 05/29/23 I am a: Patient What is your living situation today?: I have a steady place to live Within the past 12 months, did the food you bought not last and you didn't have the money to get more?: Never true Within the past 12 months, did you worry whether your food would run out before you got money to buy more?: Never true Do you have trouble paying for medicines?: No Do you have trouble getting transportation to medical appointments?: No Do you have trouble paying your heating and electricity bill?: No Do you have trouble taking care of your child, family member or friend?: No Do you have trouble with day-to-day activities such as bathing, preparing meals, shopping, managing finances, etc.?: No Are you currently unemployed and looking for a job?: No Are you interested in more education?: No Currently or been in a relationship where the following occur: no concerns reported THRIVE Score: 0 AUDIT C Alcohol Use Questionnaire (AUDIT-C) 1. How often do you have a drink containing alcohol?: Monthly or less 2. How many drinks containing alcohol do you have on a typical day when you are drinking?: 1 or 2 Total Score: 1 MYLA-7 AMB Questionnaire MYLA-7 Date MYLA - 7 assessed: 05/29/23 Feeling nervous, anxious, or on edge: 0 = Not at all Not being able to stop or control worryin = Not at all Worrying too much about different things: 0 = Not at all Trouble relaxin = Not at all Being so restless that it is hard to sit still: 0 = Not at all Becoming easily annoyed or irritable: 0 = Not at all Feeling afraid as if something awful might happen: 0 = Not at all Total MYLA-7 score (0-4 normal; 5-9 mild; 10-14 moderate; 15-21 severe): 0 Source: Developed by Drs. Otis Guzman, Parvin Small, Aamri Reed and colleagues, with an educational krysten from [employer]. Physical exam (Primary Care) Vital Signs: Last Vital Signs Pulse 92 05/29/23 13:04 BP 120/70 05/29/23 13:04 Pulse Ox 96 05/29/23 13:04 Oxygen Delivery Method Room Air 05/29/23 13:04 Care Plan Goal for BP management: Blood pressure is in range. Continue current medications. BMI result Body Mass Index 35.3 BMI Assessment/Plan discussion: High (Counseling on the importance of diet and exercise done.) Tobacco/Smoking Status: Tobacco use Status Tobacco use date assessed 05/29/23 05/29/23 13:10 Patient Tobacco Use Status Never used Tobacco 05/29/23 13:10 e-Cigarette/Vaping Use Never Used 05/29/23 13:10 PHQ-9: PHQ-9 Score PHQ-9: Total score 0 05/29/23 13:10 Depression Screening Interpretation: Negative Thrive Assessment: Date of Thrive Assessment Date Thrive assessed 05/29/23 05/29/23 13:10 Currently or been in a relationship where the following occur: no concerns reported Advance Care Planning discussion: Exists, not on file Date of discussion: 05/29/23 Who was present: Patient Forms completed: Health Care Proxy Time spent: 1-15 minutes, not on file Actual minutes spent: 5 Const General: cooperative and healthy appearing Nutritional Appearance: well nourished Orientation/consciousness: patient oriented x3 Limitations: no limitations HENMT Head: Yes normal to inspection Eyes General: appearance normal, both eyes and all related structures Neck Neck: Yes normal visual inspection Chest Chest palpation & inspection: normal palpation of entire chest wall Resp Effort & Inspection: normal respiratory effort Cardio Other: Heart: Irregular. Neuro General: patient oriented x3 Assessment and Plan Assessment & Plan (1) CHF (congestive heart failure): Comment: ECHO nl EF, mild MR Code(s): I50.9 - Heart failure, unspecified Plan: Condition is stable. Continue follow-up with lead nuclear medicine technologist. (2) COPD (chronic obstructive pulmonary disease): Comment: f/u Dr. Kapoor Code(s): J44.9 - Chronic obstructive pulmonary disease, unspecified Plan: Condition is stable. Combination of albuterol and salmeterol is helping (3) DJD (degenerative joint disease), lumbar: Code(s): M47.816 - Spondylosis without myelopathy or radiculopathy, lumbar region Plan: Condition is stable. (4) Depression: Code(s): F32.9 - Major depressive disorder, single episode, unspecified Plan: Zoloft is helping. Continue current medications at same dosage. (5) Essential hypertension: Code(s): I10 - Essential (primary) hypertension Plan: Blood pressure is stable. Calcium channel blockers are helping with the blood pressure and rate control. (6) Allergic rhinitis: Code(s): J30.9 - Allergic rhinitis, unspecified Plan: Continue Flonase. (7) Persistent atrial fibrillation: Code(s): I48.19 - Other persistent atrial fibrillation Plan: Rate is adequately controlled. On newer oral anticoagulants. Coding Level of Care Code Est Pt Level 4 (10928) Diagnoses CHF (congestive heart failure) I50.9 COPD (chronic obstructive pulmonary disease) J44.9 DJD (degenerative joint disease), lumbar M47.816 Depression F32.9 Essential hypertension I10 Allergic rhinitis J30.9 Persistent atrial fibrillation I48.19 Additional Codes Vital Signs *Quality* - Advance Care Planning discussion: Exists, not on file ([id number]) Vital Signs *Quality* - Time spent: 1-15 minutes, not on file ([id number])
[2023-05-29 13:04] VITALS: BP 120/70; PULSE 92; O2SAT 96; BMI 35.3
== END 2023-05-29 13:34 | disposition home or self-care (01) ==
PROVIDERS: PCP Internal Medicine; Visit Provider Internal Medicine
DX: I11.0 Hypertensive heart disease with heart failure (principal); I50.9 Heart failure, unspecified; J44.9 Chronic obstructive pulmonary disease, unspecified; F33.9 Major depressive disorder, recurrent, unspecified; J30.9 Allergic rhinitis, unspecified
CPT/HCPCS: 1124F; 99214

== ENCOUNTER 2023-08-29 14:18 | Outpatient (AMB) | payer MEDICARE, SELFPAY ==
--- NOTE | 2023-08-29 14:43 | A.OFFPC_ITS ---
Vital Signs 08/29/23 14:45 Height 5 ft 3 in Weight 197 lb 4 oz BMI 34.9 BP 132/76 Blood Pressure Location Lt brachial Position Sitting Pulse 150 H Pulse Source Pulse Oximeter Pulse Oximetry (%) 94 Oxygen Delivery Method Room Air Intake Visit Reasons: 3mth f/u Intake Note: Patient is here to follow up on CHF, COPD, HTN, DJD . Director Prospect Required: No Licensed Prosthetist: Not Required per policy Accompanied by: Self / Same As Patient Allergies losartan Allergy (Unknown, Verified 08/30/23 16:43) palp pseudoephedrine [Sudafed] Allergy (Unknown, Verified 08/30/23 16:43) Unknown acetaminophen [From Percocet] Allergy (Verified 08/30/23 16:43) Unknown rivaroxaban [From Xarelto] Adverse Reaction (Intermediate, Verified 08/30/23 16:43) Nose Bleed oxycodone [OXYCODONE] Adverse Reaction (Mild, Verified 08/30/23 16:43) NAUSEA & VOMITING Medication List - Last Reconciled 08/30/23 by Christiano Pearson MD albuterol sulfate 90 mcg/actuation 2 puffs inhalation Q4-6H PRN bimatoprost 0.01% drps ophthalmic (eye) biotin mcg PO digoxin 125 mcg PO DAILY diltiazem HCl CD 240 mg PO QAM fluticasone propion-salmeterol 500-50 mcg/dose 2 ea inhalation Q12H hydrochlorothiazide 25 mg PO DAILY metoprolol succinate ER 25 mg PO DAILY potassium chloride 20 mEq PO .3 times a week rivaroxaban (Xarelto) 20 mg PO DAILY sertraline 100 mg PO DAILY timolol maleate 0.5% drps ophthalmic (eye) valsartan 80 mg PO BID zinc acetate (Galzin) 50 mg PO DAILY Tobacco use date assessed: 08/29/23 Fall risk assessment: No Falls in past year Last assessed Fall Risk: 08/29/23 Dental Screening Dental Screen Date: 05/29/23 HPI 3mth f/u HPI Details 78-year-old female presents to the [facility] to discuss her chronic medical conditions. Compliant with all medication. Patient is sleeping better. She is mostly homebound. Her groceries are delivered. Does not drive. She lives alone. Reports no bladder issues. Able to do her finances on her own. [facility] Medical History CHF (congestive heart failure) Allergic rhinitis Neck pain Heart failure with preserved ejection fraction Persistent atrial fibrillation Glaucoma Osteopenia Hypertension Depression COPD (chronic obstructive pulmonary disease) Atrial fibrillation Surgical History History of cardioversion History of cardiac radiofrequency ablation Family History Father No problems noted. Mother No problems noted. Social History Housing: House Alcohol intake: current Alcohol intake frequency: a few times a week Alcohol t ype: wine Patient Tobacco Use Status: Never used Tobacco e-Cigarette/Vaping Use: Never Used Second Hand Smoke Exposure: No service: No Current occupational status: retired Cognitive needs: No Hearing needs: No Vision needs: Yes (Glasses) Questionnaire Thrive Questionnaire Date Thrive assessed: 05/29/23 MYLA-7 AMB Questionnaire MYLA-7 Date MYLA - 7 assessed: 05/29/23 Source: Developed by Drs. Otis Guzman, Parvin Small, Amari Reed and colleagues, with an educational krysten from [employer]. Physical exam (Primary Care) Vital Signs: Last Vital Signs Pulse 150 H 08/29/23 14:45 BP 132/76 08/29/23 14:45 Pulse Ox 94 08/29/23 14:45 Oxygen Delivery Method Room Air 08/29/23 14:45 Care Plan Goal for BP management: Blood pressure is in range BMI result Body Mass Index 34.9 Tobacco/Smoking Status: Tobacco use Status Tobacco use date assessed 08/29/23 08/29/23 14:51 Patient Tobacco Use Status Never used Tobacco 08/29/23 14:51 e-Cigarette/Vaping Use Never Used 08/29/23 14:51 Thrive Assessment: Date of Thrive Assessment Date Thrive assessed 05/29/23 08/29/23 14:51 Assessment and Plan Assessment & Plan (1) CHF (congestive heart failure): Comment: ECHO nl EF, mild MR Code(s): I50.9 - Heart failure, unspecified Plan: Condition is stable. Continue current medications. (2) Essential hypertension: Code(s): I10 - Essential (primary) hypertension Plan: Blood pressure is stable. Continue current medications. Orders: Orders Liver Panel 08/29/23 I10 - Essential (primary) hypertension, I50.9 - Heart failure, unspecified Basic Metabolic Panel 08/29/23 I10 - Essential (primary) hypertension, I50.9 - Heart failure, unspecified Complete Blood Count no Diff 08/29/23 I10 - Essential (primary) hypertension, I50.9 - Heart failure, unspecified Lipid Panel 08/29/23 I10 - Essential (primary) hypertension, I50.9 - Heart failure, unspecified Thyroid Stimulating Hormone 08/29/23 I10 - Essential (primary) hypertension, I50.9 - Heart failure, unspecified UA and rflx microscopic 08/29/23 I10 - Essential (primary) hypertension, I50.9 - Heart failure, unspecified Coding Level of Care Code Est Pt Level 4 (23187) Complex EM visit Add On G2211 Diagnoses CHF (congestive heart failure) I50.9 Essential hypertension I10
[2023-08-29 14:45] VITALS: BP 132/76; PULSE 150; O2SAT 94; BMI 34.9
== END 2023-08-29 15:33 | disposition home or self-care (01) ==
PROVIDERS: PCP Internal Medicine; Visit Provider Internal Medicine
DX: I11.0 Hypertensive heart disease with heart failure (principal); I50.9 Heart failure, unspecified
CPT/HCPCS: 99214; G2211

== ENCOUNTER 2023-09-27 13:03 | Outpatient (REF) | payer MEDICARE, SELFPAY ==
[2023-09-27 13:35] LABS: Hematocrit 42.7 % (37.0-47.0); Hemoglobin 13.8 g/dl (12.0-16.0); Mean Corpuscular HGB Conc 32.3 g/dl (31.0-35.0); Mean Corpuscular Hemoglobin 30.7 pg (27.0-33.0); Mean Corpuscular Volume 94.9 fL (80.0-98.0); Mean Platelet Volume 9.6 fL (9.4-12.3); Platelet Count 248 X10*3/uL (160-400); Red Cell Distribution Width 13.6 % (11.0-16.0); White Blood Count 9.9 X10*3/uL (4.8-10.8)
[2023-09-27 14:22] LABS: Alanine Aminotransferase 20 U/L (0-31); Albumin Level 3.9 g/dL (3.5-5.0); Alkaline Phosphatase 136 U/L (39-117); Anion Gap 10 (12-20); Aspartate Amino Transferase 24 U/L (5-31); Bilirubin Direct 0.2 mg/dL (0.0-0.5); Bilirubin Total 0.7 mg/dL (0.0-1.0); Blood Urea Nitrogen 21 mg/dL (9-16); Calcium 9.9 mg/dL (8.4-10.2); Carbon Dioxide 33 mmol/L (22-29); Chloride 101 mmol/L (96-108); Cholesterol 162 mg/dL (<200); Estimated Glomerular Filt Rate 49; Glucose Random 111 mg/dL (60-115); HDL Cholesterol 63 mg/dL (>40); LDL Cholesterol Calculated 77 mg/dL (<100); Sodium 140 mmol/L (135-145); Total Protein 7.7 g/dL (6.5-8.0); Triglycerides 111 mg/dL (<150)
[2023-09-27 14:40] LABS: Thyroid Stimulating Hormone 0.54 uIU/mL (0.32-4.0)
[2023-09-27 15:45] LABS: Appearance Urine Cloudy; Color Urine Dark Yellow; Glucose Urine UA Negative (Negative); Leukocyte Esterase Urine Negative (Negative); Nitrite Urine Negative (Negative); PH 7.5 (5.0-9.0); Urine Blood Negative (Negative); Urine Ketones Negative (Negative); Urine Protein Negative (Neg-Trace)
== END 2023-09-27 13:04 | disposition home or self-care (01) ==
LOC: HO.LAB 13:03
PROVIDERS: PCP Internal Medicine; Visit Provider Internal Medicine
DX: I11.0 Hypertensive heart disease with heart failure (principal); I50.9 Heart failure, unspecified
CPT/HCPCS: 36415; 80048; 80061; 80076; 81003; 84443; 85027

== ENCOUNTER 2023-11-11 14:09 | Outpatient (AMB) | payer MEDICARE, SELFPAY ==
[2023-11-11 14:19] VITALS: BP 136/82; PULSE 68; O2SAT 96; BMI 35.0
--- NOTE | 2023-11-11 14:19 | A.OFFPC_ITS ---
Vital Signs 11/11/23 14:19 Height 5 ft 3 in Weight 197 lb 6 oz BMI 35.0 BP 136/82 Blood Pressure Location Lt brachial Position Sitting Pulse 68 Pulse Source Pulse Oximeter Pulse Oximetry (%) 96 Oxygen Delivery Method Room Air Intake Visit Reasons: Hip pain Occupational Therapy Professor Required: No Accompanied by: Self / Same As Patient Allergies losartan Allergy (Unknown, Verified 11/11/23 14:56) palp pseudoephedrine [Sudafed] Allergy (Unknown, Verified 11/11/23 14:56) Unknown acetaminophen [From Percocet] Allergy (Verified 11/11/23 14:56) Unknown rivaroxaban [From Xarelto] Adverse Reaction (Intermediate, Verified 11/11/23 14:56) Nose Bleed oxycodone [OXYCODONE] Adverse Reaction (Mild, Verified 11/11/23 14:56) NAUSEA & VOMITING Medication List - Last Reconciled 11/11/23 by Christiano Pearson MD albuterol sulfate 90 mcg/actuation 2 puffs inhalation Q4-6H PRN bimatoprost 0.01% drps ophthalmic (eye) biotin mcg PO digoxin 125 mcg PO DAILY diltiazem HCl CD 240 mg PO QAM fluticasone propion-salmeterol 500-50 mcg/dose 2 ea inhalation Q12H hydrochlorothiazide 25 mg PO DAILY metoprolol succinate ER 25 mg PO DAILY potassium chloride 20 mEq PO .3 times a week rivaroxaban (Xarelto) 20 mg PO DAILY sertraline 100 mg PO DAILY valsartan 80 mg PO BID zinc acetate (Galzin) 50 mg PO DAILY Tobacco use date assessed: 11/11/23 Fall risk assessment: No Falls in past year Last assessed Fall Risk: 11/11/23 Dental Screening Dental Screen Date: 11/11/23 Did you have a dental visit in the last 12 months?: Yes Did you have a dental problem in the last 6 months where you did not have access to dental care?: No Was dental information given to patient?: Patient has dentist HPI Hip pain HPI Details 78-year-old female presents to the [facility] for a sick visit. For the past few weeks patient is complaining of pain in the left hip. She has hardware placed in the right hip, right knee, left knee. Does not recall any fall or injury prior to the onset of symptoms. Patient reports stiffness in the morning which worsens during the day. Able to ambulate with a cane. Able to ambulate at home, climb stairs 1 step at a time. [facility] Medical History CHF (congestive heart failure) Allergic rhinitis Neck pain Heart failure with preserved ejection fraction Persistent atrial fibrillation Glaucoma Osteopenia Hypertension Depression COPD (chronic obstructive pulmonary disease) Atrial fibrillation Surgical History History of cardioversion History of cardiac radiofrequency ablation Family History Father No problems noted. Mother No problems noted. Social History Housing: House Alcohol intake: current Alcohol intake frequency: a few times a week Alcohol type: wine Patient Tobacco Use Status: Never used Tobacco e-Cigarette/Vaping Use: Never Used Second Hand Smoke Exposure: No service: No Current occupational status: retired Cognitive needs: No Hearing needs: No Vision needs: Yes (Glasses) Questionnaire PHQ-9 Over the last 2 weeks, how often have you been bothered by any of the following problems? 1. Little interest or pleasure in doing things: not at all 2. Feeling down, depressed, or hopeless: not at all 3. Trouble falling or staying asleep, or sleeping too much: not at all 4. Feeling tired or having little energy: not at all 5. Poor appetite or overeating: not at all 6. Feeling bad about yourself - or that you are a failure or have let yourself or your family down: not at all 7. Trouble concentrating on things, such as reading the newspaper or watching television: not at all 8. Moving or speaking so slowly that other people could have noticed. Or the opposite - being so fidgety or restless that you have been moving around a lot more than usual: not at all 9. Thoughts that you would be better off or of hurting yourself in some way: not at all Total score: 0 Depression Screening Interpretation: Negative Depression Screening Done: Yes Source: Developed by Drs. Parvin Parks Kurt Kroenke and colleagues, with an educational krysten from [employer]. Thrive Questionnaire Date Thrive assessed: 11/11/23 I am a: Patient What is your living situation today?: I have a steady place to live Within the past 12 months, did the food you bought not last and you didn't have the money to get more?: Never true Within the past 12 months, did you worry whether your food would run out before you got money to buy more?: Never true Do you have trouble paying for medicines?: No Do you have trouble getting transportation to medical appointments?: No Do you have trouble paying your heating and electricity bill?: No Do you have trouble taking care of your child, family member or friend?: No Do you have trouble with day-to-day activities such as bathing, preparing meals, shopping, managing finances, etc.?: No Are you currently unemployed and looking for a job?: No Are you interested in more education?: No Please select the resources that you would like help with: None Currently or been in a relationship where the following occur: No concerns reported THRIVE Score: 0 AUDIT C Alcohol Use Questionnaire (AUDIT-C) 1. How often do you have a drink containing alcohol?: Monthly or less 2. How many drinks containing alcohol do you have on a typical day when you are drinking?: 1 or 2 Total Score: 1 MYLA-7 AMB Questionnaire MYLA-7 Date MYLA - 7 assessed: 11/11/23 Feeling nervous, anxious, or on edge: 0 = Not at all Not being able to stop or control worryin = Not at all Worrying too much about different things: 0 = Not at all Trouble relaxin = Not at all Being so restless that it is hard to sit still: 0 = Not at all Becoming easily annoyed or irritable: 0 = Not at all Feeling afraid as if something awful might happen: 0 = Not at all Total MYLA-7 score (0-4 normal; 5-9 mild; 10-14 moderate; 15-21 severe): 0 Source: Developed by Parvin Allan, Amari Reed and colleagues, with an educational krysten from [employer]. Physical exam (Primary Care) Vital Signs: Last Vital Signs Pulse 68 11/11/23 14:19 BP 136/82 11/11/23 14:19 Pulse Ox 96 11/11/23 14:19 Oxygen Delivery Method Room Air 11/11/23 14:19 BMI result Body Mass Index 35.0 Tobacco/Smoking Status: Tobacco use Status Tobacco use date assessed 11/11/23 11/11/23 14:27 Patient Tobacco Use Status Never used Tobacco 11/11/23 14:27 e-Cigarette/Vaping Use Never Used 11/11/23 14:27 PHQ-9: PHQ-9 Score PHQ-9: Total score 0 11/11/23 14:27 Depression Screening Interpretation: Negative Thrive Assessment: Date of Thrive Assessment Date Thrive assessed 11/11/23 11/11/23 14:27 Currently or been in a relationship where the following occur: No concerns reported Const Other: Unable to get on the exam table. Extrem Other: Examination of the patient done while she was sitting in a chair. No tenderness around the greater trochanter area. Patient able to flex and extend her knee. With the knee extended, patient is able to internal and externally rotate her left leg. Assessment and Plan Assessment & Plan (1) Pain of left hip: Code(s): M25.552 - Pain in left hip Plan: X-ray of the left hip ordered. Patient was advised to take Tylenol for pain. Orders: Orders XR hip LT w PEL1V Today M25.552 - Pain in left hip Coding Level of Care Code Est Pt Level 4 (12001) Complex EM visit Add On G2211 Diagnoses Pain of left hip M25.552
== END 2023-11-11 15:00 | disposition home or self-care (01) ==
PROVIDERS: PCP Internal Medicine; Visit Provider Internal Medicine
DX: M25.552 Pain in left hip (principal)
CPT/HCPCS: 99214; G2211

== ENCOUNTER 2023-11-28 12:31 | Outpatient (REF) | payer MEDICARE, SELFPAY ==
--- NOTE | ~2023-11-28 | XR_ITS ---
EXAMINATION: XR HIP, LEFT CLINICAL INFORMATION: Pain in left hip No known injury COMPARISON: Right hip 07/21/2015 TECHNIQUE: AP pelvis and Two views of the left hip. FINDINGS: The bones are mildly diffusely demineralized. The patient is status post right total hip arthroplasty without evidence of periprosthetic lucency or fracture. There is moderate to marked narrowing of the cartilage space of the left hip. The sacroiliac joints are within normal limits. There is mild degenerative change of the pubic symphysis. There is marked atherosclerotic change of the femoral arteries bilaterally. There is marked degenerative change of the lower lumbar spine. XR/XR hip LT w PEL1V IMPRESSION: 1. Moderate to marked osteoarthritis of the left hip. 2. Status post right total hip arthroplasty without evidence of hardware complication. Electronically signed by: Bess Buitrago MD 12/19/2023 02:17 PM EDT
== END 2023-11-28 12:32 | disposition home or self-care (01) ==
LOC: HO.XRAY 12:31
PROVIDERS: PCP Internal Medicine; Visit Provider Internal Medicine
DX: M25.552 Pain in left hip (principal)
CPT/HCPCS: 73502

== ENCOUNTER 2023-12-09 13:46 | Outpatient (AMB) | payer MEDICARE, SELFPAY ==
--- NOTE | 2023-12-09 13:50 | A.OFFPC_ITS ---
Vital Signs 12/09/23 13:54 Height 5 ft 3 in Weight 195 lb 8 oz BMI 34.6 BP 130/66 Blood Pressure Location Lt brachial Position Sitting Pulse 75 Pulse Source Pulse Oximeter Pulse Oximetry (%) 96 Oxygen Delivery Method Room Air Intake Visit Reasons: Knee implant hurting Intake Note: Patient is here to follow up on left Knee hurting. 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 per policy Accompanied by: Self / Same As Patient Allergies losartan Allergy (Unknown, Verified 12/09/23 14:17) palp pseudoephedrine [Sudafed] Allergy (Unknown, Verified 12/09/23 14:17) Unknown acetaminophen [From Percocet] Allergy (Verified 12/09/23 14:17) Unknown rivaroxaban [From Xarelto] Adverse Reaction (Intermediate, Verified 12/09/23 14:17) Nose Bleed oxycodone [OXYCODONE] Adverse Reaction (Mild, Verified 12/09/23 14:17) NAUSEA & VOMITING Medication List - Last Reconciled 12/09/23 by Christiano Pearson MD albuterol sulfate 90 mcg/actuation 2 puffs inhalation Q4-6H PRN bimatoprost 0.01% drps ophthalmic (eye) biotin mcg PO digoxin 125 mcg PO DAILY diltiazem HCl CD 240 mg PO QAM fluticasone propion-salmeterol 500-50 mcg/dose 2 ea inhalation Q12H hydrochlorothiazide 25 mg PO DAILY metoprolol succinate ER 25 mg PO DAILY potassium chloride 20 mEq PO .3 times a week rivaroxaban (Xarelto) 20 mg PO DAILY sertraline 100 mg PO DAILY valsartan 80 mg PO BID zinc acetate (Galzin) 50 mg PO DAILY Tobacco use date assessed: 12/09/23 Fall risk assessment: No Falls in past year Last assessed Fall Risk: 12/09/23 Dental Screening Dental Screen Date: 11/11/23 HPI Knee implant hurting HPI Details 78-year-old female presents to the [facility] for a follow-up visit. Patient has a bruising just beneath her left ankle. Symptoms present for the past few days. Does not recall any fall or injury. The left hip continues to hurt. She had x-rays done 2 weeks ago. She would like to see an orthopedic surgeon. [facility] Medical History CHF (congestive heart failure) Allergic rhinitis Neck pain Heart failure with preserved ejection fraction Persistent atrial fibrillation Glaucoma Osteopenia Hypertension Depression COPD (chronic obstructive pulmonary disease) Atrial fibrillation Surgical History History of cardioversion History of cardiac radiofrequency ablation Family History Father No problems noted. Mother No problems noted. Social History Housing: House Alcohol intake: current Alcohol intake frequency: a few times a week Alcohol type: wine Patient Tobacco Use Status: Never used Tobacco e-Cigarette/Vaping Use: Never Used Second Hand Smoke Exposure: No service: No Current occupational status: retired Cognitive needs: No Hearing needs: No Vision needs: Yes (Glasses) Questionnaire Thrive Questionnaire Date Thrive assessed: 11/11/23 Are you currently unemployed and looking for a job?: No MYLA-7 AMB Questionnaire MYLA-7 Date MYLA - 7 assessed: 11/11/23 Source: Developed by Drs. Otis Guzman, Parvin Small, Amari Reed and colleagues, with an educational krysten from [employer]. Physical exam (Primary Care) Vital Signs: Last Vital Signs Pulse 75 12/09/23 13:54 BP 130/66 12/09/23 13:54 Pulse Ox 96 12/09/23 13:54 Oxygen Delivery Method Room Air 12/09/23 13:54 BMI result Body Mass Index 34.6 Tobacco/Smoking Status: Tobacco use Status Tobacco use date assessed 12/09/23 12/09/23 14:00 Patient Tobacco Use Status Never used Tobacco 12/09/23 13:51 e-Cigarette/Vaping Use Never Used 12/09/23 13:51 Thrive Assessment: Date of Thrive Assessment Date Thrive assessed 11/11/23 12/09/23 13:51 Const General: cooperative and healthy appearing Nutritional Appearance: well nourished Orientation/consciousness: patient oriented x3 Limitations: no limitations HENMT Head: Yes normal to inspection Eyes General: appearance normal, both eyes and all related structures Neck Neck: Yes normal visual inspection Chest Chest palpation & inspection: normal palpation of entire chest wall Resp Effort & Inspection: normal respiratory effort Neuro General: patient oriented x3 Extrem Other: Left ankle: Minimal bruising beneath the lateral malleolus. Full range of motion at the ankle without any pain. Assessment and Plan Assessment & Plan (1) Pain of left hip: Code(s): M25.552 - Pain in left hip Plan: Patient was reassured on the bruising under the left ankle. X-ray of the left hip has not been officially read. Will call the patient when the results are available. An orthopedic referral at patient's request was made to a surgeon at [facility]. Orders: Referrals Orthopedics Referral M25.552 - Pain in left hip Coding Level of Care Code Est Pt Level 3 (46472) Complex EM visit Add On G2211 Diagnoses Pain of left hip M25.552
[2023-12-09 13:54] VITALS: BP 130/66; PULSE 75; O2SAT 96; BMI 34.6
== END 2023-12-09 14:13 | disposition home or self-care (01) ==
PROVIDERS: PCP Internal Medicine; Visit Provider Internal Medicine
DX: M25.552 Pain in left hip (principal)

== ENCOUNTER → 2023-12-09 13:46 | Outpatient (BNVA) | payer MEDICARE, SELFPAY | PROVIDERS: PCP Internal Medicine; Visit Provider Internal Medicine | DX: T84.84XA Pain due to internal orthopedic prosthetic devices, implants and grafts, initial encounter (principal) | CPT/HCPCS: 99212 ==

== ENCOUNTER 2024-08-20 13:14 | Outpatient (REF) | payer MEDICARE, SELFPAY ==
[2024-08-20 14:50] LABS: MANUAL DIFF FLAG NO
[2024-08-20 15:21] LABS: Basophils Absolute Auto 0.1 X10*3/uL (0.0-0.2); Basophils Percent Auto 0.7 % (0-2); Eosinophils Absolute Auto 0.3 X10*3/uL (0.0-0.4); Eosinophils Percent Auto 2.6 % (0-4); Hematocrit 43.5 % (37.0-47.0); Hemoglobin 14.6 g/dl (12.0-16.0); Imm Gran Abs Auto 0.04 X10*3/uL (0.00-0.03); Imm Gran Pct Auto 0.4 % (0.0-0.4); Lymphocytes Absolute Auto 1.5 X10*3/uL (1.2-4.9); Lymphocytes Percent Auto 13.8 % (20-40); Mean Corpuscular HGB Conc 33.6 g/dl (31.0-35.0); Mean Corpuscular Hemoglobin 31.3 pg (27.0-33.0); Mean Corpuscular Volume 93.3 fL (80.0-98.0); Monocytes Absolute Auto 1.2 X10*3/uL (0.1-1.2); Monocytes Percent Auto 11.3 % (2-11); Neutrophils Absolute Auto 7.8 x10*3/uL (2.0-8.3); Neutrophils Percent Auto 71.2 % (45-73); Platelet Count 272 X10*3/uL (160-400); Red Blood Count 4.66 X10*6/uL (4.20-5.50); Red Cell Distribution Width 12.9 % (11.0-16.0); White Blood Count 10.9 X10*3/uL (4.8-10.8)
[2024-08-20 18:07] LABS: Alanine Aminotransferase 16 U/L (0-31); Alkaline Phosphatase 132 U/L (39-117); Anion Gap 14 (12-20); Aspartate Amino Transferase 30 U/L (5-31); Bilirubin Total 0.7 mg/dL (0.0-1.0); Blood Urea Nitrogen 31 mg/dL (9-16); Calcium 10.3 mg/dL (8.4-10.2); Carbon Dioxide 32 mmol/L (22-29); Chloride 101 mmol/L (96-108); Estimated Glomerular Filt Rate 38; Glucose Random 132 mg/dL (60-115); Potassium 3.6 mmol/L (3.3-5.1); Sodium 143 mmol/L (135-145); Total Protein 7.6 g/dL (6.5-8.0)
== END 2024-08-20 13:15 | disposition home or self-care (01) ==
LOC: HO.LAB 13:14
PROVIDERS: PCP Internal Medicine; Visit Provider Nurse Practitioner Family
DX: I48.19 Other persistent atrial fibrillation (principal); I10 Essential (primary) hypertension; I50.9 Heart failure, unspecified; I35.8 Other nonrheumatic aortic valve disorders
CPT/HCPCS: 36415; 80053; 80162; 85025; 93005; 99212

== ENCOUNTER 2024-08-20 13:14 | Outpatient (AMB) | payer MEDICARE, SELFPAY ==
[2024-08-20 13:47] VITALS: BP 120/72; PULSE 82; BMI 32.1
--- NOTE | 2024-08-20 13:47 | A.OFFVIS_ITS ---
Vital Signs 08/20/24 13:47 Height 5 ft 3 in Weight 181 lb 3.52 oz BMI 32.1 BP 120/72 Blood Pressure Location Lt brachial Position Sitting Pulse 82 Pulse Source Monitor Intake Visit Reasons: f/up- Card Placer Required: No Allergies losartan Allergy (Unknown, Verified 08/20/24 13:51) palp pseudoephedrine [Sudafed] Allergy (Unknown, Verified 08/20/24 13:51) Unknown acetaminophen [From Percocet] Allergy (Verified 08/20/24 13:51) Unknown rivaroxaban [From Xarelto] Adverse Reaction (Intermediate, Verified 08/20/24 13:51) Nose Bleed oxycodone [OXYCODONE] Adverse Reaction (Mild, Verified 08/20/24 13:51) NAUSEA & VOMITING Medication List - Last Reconciled 08/20/24 by Tiffanie Santiago NP-C albuterol sulfate 90 mcg/actuation 2 puffs inhalation Q4-6H PRN bimatoprost 0.01% drps ophthalmic (eye) biotin mcg PO digoxin 125 mcg PO DAILY diltiazem HCl CD 240 mg PO QAM fluticasone propion-salmeterol 500-50 mcg/dose 2 ea inhalation Q12H hydrochlorothiazide 25 mg PO DAILY metoprolol succinate ER 25 mg PO DAILY potassium chloride 20 mEq PO .3 times a week rivaroxaban (Xarelto) 20 mg PO DAILY sertraline 100 mg PO DAILY valsartan 80 mg PO BID zinc acetate (Galzin) 50 mg PO DAILY HPI HPI f/up-: Details: Danya is an 79-year-old female with past medical history of hypertension, heart failure with preserved EF, COPD, persistent atrial fibrillation who presents for follow-up. The last visit to our office was 07/19/2021. Today she reports that she was seeing another delivery driver/supervisor out near [place] due to transportation issues in the last few years. She now would like to come back to our office. She reports that she has been doing generally well with no concerning cardiac symptoms. She denies chest discomfort, shortness of breath, palpitations, presyncope, syncope, falls. She was having some lightheadedness and describes recent issues with her right ear. She said she was getting large amounts of wax out of it and she had some minor bleeding. She also then had some lightheadedness. She does only light physical activity. She no longer drives. Compliant with her medications. [facility] Medical History CHF (congestive heart failure) Allergic rhinitis Neck pain Heart failure with preserved ejection fraction Persistent atrial fibrillation Glaucoma Osteopenia Hypertension Depression COPD (chronic obstructive pulmonary disease) Atrial fibrillation Surgical History History of cardioversion History of cardiac radiofrequency ablation Family History Father No problems noted. Mother No problems noted. Social History Housing: House Alcohol intake: current Alcohol intake frequency: a few times a week Alcohol type: wine Patient Tobacco Use Status: Never used Tobacco e-Cigarette/Vaping Use: Never Used Second Hand Smoke Exposure: No service: No Current occupational status: retired Cognitive needs: No Hearing needs: No Vision needs: Yes (Glasses) Review of Systems Const All systems reviewed & are unremarkable except as noted in HPI and below ENT Denies dizziness Card Denies chest pain, Denies chest pain at rest, Denies chest pain with activity, Denies rapid heart rate, Denies pedal edema, Denies edema, Denies leg edema, Denies lightheadedness, Denies palpitations, Denies dyspnea, Denies dyspnea on exertion and Denies orthopnea Resp Denies cough, Denies dyspnea and Denies dyspnea on exertion GI Denies hematochezia and Denies change in stool character Musc Denies abnormal gait, Denies limited range of motion, Denies muscle cramps, Denies muscle weakness, Denies numbness, Denies radiating pain into limb, Denies stiffness and Denies tingling Neuro Denies abnormal gait, Denies dizziness, Denies numbness and Denies tingling Endo Denies palpitations Physical Exam Vital Signs: Last Vital Signs Pulse 82 08/20/24 13:47 BP 120/72 08/20/24 13:47 BMI result Body Mass Index 32.1 Const General: cooperative, healthy appearing, comfortable and no acute distress Orientation/consciousness: patient oriented x3 Neck Neck: Yes normal visual inspection Resp Effort & Inspection: normal respiratory effort Auscultation: clear to auscultation bilaterally, no crackles, no rales, no rhonchi and no wheezes Cardio Rate: regular rate Rhythm: abnormal rhythm Heart sounds: S1 normal heart sound present, S2 normal heart sound present, no gallops, no murmurs and no rubs Skin General skin exam: no rashes or lesions noted Neuro General: patient oriented x3 Extrem General: Yes normal to inspection, No no pedal edema and No calf tenderness Psych Appearance: grossly normal Mental Status: mental status grossly normal Speech and movement: Normal speech and movement present Office Procedures EKG Details: Today, read by me, atrial fibrillation, ST and T-wave abnormality in the inferior lateral leads, similar to prior EKG, rate 82, QTC 443 milliseconds [id number], Complete Results Reviewed Results Reviewed: Echo 03/06/20 Conclusions: - The left ventricular systolic function is normal. The visually estimated ejection fraction is between 55-60%. - The left atrium is moderately dilated. - There is mild calcification of the aortic valve. - There is mild tricuspid valve regurgitation. - Mild pulmonary hypertension is present. Assessment & Plan Assessment & Plan (1) Persistent atrial fibrillation: Code(s): I48.19 - Other persistent atrial fibrillation Category: Medical Plan: History of persistent atrial fibrillation that is treated with heart rate control. She is on metoprolol, diltiazem and digoxin. EKG done today shows atrial fibrillation with ST and T-wave abnormalities in the inferior lateral leads, rate 82. When compared to prior EKG ST and T-wave abnormalities appear overall unchanged. She is on Xarelto for anticoagulation and denies any significant bleeding issues. Will check labs today including digoxin level, CMP and CBC. No med changes made at this time. Cardiology follow-up 6 months, sooner if needed. (2) Essential hypertension: Code(s): I10 - Essential (primary) hypertension Category: Medical Plan: Blood pressure goal less than 130/80, well controlled at this time. No med changes made. Continue valsartan, metoprolol, diltiazem, hydrochlorothiazide. Checking labs today. (3) CHF (congestive heart failure): Comment: ECHO nl EF, mild MR Code(s): I50.9 - Heart failure, unspecified Category: Medical Plan: History of heart failure with preserved EF. Last echocardiogram 2009 with normal EF. She does not appear fluid overloaded on examination. Signs and symptoms of heart failure reviewed with her. Will update echocardiogram. (4) Aortic valve sclerosis: Code(s): I35.8 - Other nonrheumatic aortic valve disorders Category: Medical Plan: Last echo 2009 shows aortic sclerosis. No clear murmur noted on exam. Will update echocardiogram. Plan I discussed with the patient the ongoing management of her atrial fibrillation and the potential causes of her lightheadedness, such as inner ear disturbance.. The ear bleeding incident was likely due to the anticoagulant, and she was advised on more gentle ear cleaning practices. We planned to check her electrolyte, blood count levels as well as a digoxin level. The importance of medication adherence was emphasized to prevent exacerbation of her symptoms. I acknowledged her mobility challenges and need for oxygen, ensuring her safety and comfort. Follow-up schedules were agreed upon, emphasizing the necessity of regular cardiac evaluations to prevent future complications. Orders: Orders Digoxin Today I48.19 - Other persistent atrial fibrillation Comprehensive Met. Panel Today I48.19 - Other persistent atrial fibrillation Complete Blood Count Auto Diff Today I48.19 - Other persistent atrial fibrillation CA echo transthoracic complete Today I35.8 - Other nonrheumatic aortic valve disorders, I48.19 - Other persistent atrial fibrillation Patient Instructions: - Continue taking all prescribed medications as directed. - Be cautious with ear cleaning to prevent bleeding. - Schedule blood work as soon as able. - Practice safe mobility, considering assistance when needed. - Monitor symptoms and seek medical attention if significant changes occur. - Follow up in six months or sooner if new symptoms arise. Patient was informed and verbally consented to the use of an ambient scribe for clinic note documentation during this visit. Visit time spent on chart review, interview, assessment, orders, documentation. Coding Level of Care Code Est Pt Level 4 (17656) Complex EM visit Add On G2211 Diagnoses Persistent atrial fibrillation I48.19 Essential hypertension I10 CHF (congestive heart failure) I50.9 Aortic valve sclerosis I35.8 CPT Codes EKG - CPT: 44859-[id number], Complete ([id number])
== END 2024-08-20 14:28 | disposition home or self-care (01) ==
LOC: HO.HCS 13:15
PROVIDERS: PCP Internal Medicine; Visit Provider Nurse Practitioner Family
DX: I48.19 Other persistent atrial fibrillation (principal); I10 Essential (primary) hypertension; I50.9 Heart failure, unspecified; I35.8 Other nonrheumatic aortic valve disorders
CPT/HCPCS: 93010; 99214; G2211

== ENCOUNTER → 2024-09-29 13:40 | Outpatient (REF) | payer MEDICARE, SELFPAY ==
--- NOTE | 2024-09-29 13:42 | CA_ITS ---
Transthoracic Echocardiogram Patient (Last, First, Middle): Danya Yan, Gender: Female Date of : 1945 Age: 79 Procedure Date: 09/29/2024 Procedure Type: Transthoracic Echocardiogram Location: OP Height: 160. cm Weight: 81.65 kg BSA: 1.85 m2 Heart Rate: 55 bpm BP: 140 / 80 mmHg [employer] Racker: NELSON Referring MD: Tiffanie Santiago ENDOSCOPY REGISTERED NURSE-Sincere Symptoms: I35.8 - Other nonrheumatic aortic valve disorders Study Quality: Fair ECG Rhythm: Atrial Fibrillation Conclusions: - The left ventricular systolic function is normal. The calculated ejection fraction is 60% by biplane method. - No obvious valvular pathology seen on this study. Findings Left Ventricle Normal left ventricular cavity size. There is normal left ventricular wall thickness. The left ventricular systolic function is normal. The calculated ejection fraction is 60% by biplane method. There is no evidence of regional wall motion abnormalities. Diastolic function is indeterminate on the basis of available data. Right Ventricle Mildly increased right ventricular cavity size. There is mildly decreased right ventricular systolic function. Atria Moderate biatrial enlargement. Aortic Valve There is a normal trileaflet aortic valve. There is no aortic valve stenosis. There is trace (trivial) aortic valve regurgitation. Mitral Valve The mitral valve appears normal. There is trace mitral valve regurgitation. There is no mitral valve stenosis. Pulmonic Valve There is trace pulmonic valve regurgitation. Tricuspid Valve Normal tricuspid valve structure. There is trace tricuspid valve regurgitation. There is no evidence of pulmonary hypertension. Great Vessels The asc aorta and aortic arch are normal in size. Venous The inferior vena cava is normal in size and collapses greater than 50% with inspiration. Pericardium/Pleural There is no evidence of pericardial effusion. Prior Study Comparison No significant change compared to prior study dated: 02/25/2020. Recommendations, Care & Conclusions No obvious valvular pathology seen on this study. Measurements 2D Linear Measurements IVSd: 0.96 0.6-0.9/0.6-1.0 cm LVIDd: 4.05 3.9-5.3/4.2-5.9 cm LVIDd Index: 2.19 2.4-3.2/2.2-3.1 cm/m2 LVIDs: 2.74 2.0-3.6 cm LVPWd: 1.09 0.7-1.1 cm LA Diam: 4.20 2.7-3.8/3.0-4.0 cm LAIDs Index: 2.27 1.5-2.3 cm/m2 LV Mass: 167.21 67-162/88-224 g LV Mass Index: 90.38 43-95/49-115 g/m2 LVOT Diam: 2.00 3.0+(-)1.3 cm 2D Systolic Function EF 4C: 55.00 >55% EF 2C: 67.10 >55% EF BiP: 60.10 >55% Mitral Valve MV Pk E: 0.82 MV Decel Time: 231.00 E'Lateral: 9.48 E'Medial: 7.07 E/E' Med: 11.60 E/E' Lat: 8.70 PHT: 68.00 MVA PHT: 3.24 Decel Sampson: 3.71 Aortic Valve AoV Pk Pb: 1.75 AoV Mn Pb: 1.22 AoV VTI: 0.39 AoV Pk Grad: 12.00 Aov Mn Grad: 6.00 DIONTE Cont.VTI: 2.10 LVOT LVOT Pk Pb: 1.15 LVOT Mn Pb: 0.78 LVOT VTI: 0.26 LVOT Pk Grad: 5.00 LVOT Mn Grad: 3.00 LVOT Diam: 2.00 LVOT Area: 3.14 Diastolic Function MV Pk E: 0.82 E'Medial: 7.07 E/E' Med: 11.60 E' Laterial: 9.48 E/E' Lat: 8.70 Right Ventricle TAPSE (mm): 16.80 TVS' Pb: 8.92 Tricuspid Valve TR Pk Pb: 2.63 TR Pk Grad: 28.00 RA Press: 3.00 RVSP: 31.00 Great Vessels Aorta Sinus of Valsalva: 3.10 2.0-3.5 cm Ao Asc: 3.50 2.1-3.4 cm Ao Arch: 3.30 Pulmonary Valve PV Pk Pb: 1.01 Peak PV Grad: 4.00 Updated in Other Vendor System with Status of Final Frandy Basilio MD electronically signed on 09/30/2024 4:22:04 PM with status of Final
== END ==
LOC: HO.CARD 13:40
PROVIDERS: PCP Internal Medicine; Visit Provider Nurse Practitioner Family
DX: I35.8 Other nonrheumatic aortic valve disorders (principal); I48.19 Other persistent atrial fibrillation
CPT/HCPCS: 93306

== ENCOUNTER → 2024-09-29 13:42 | Outpatient (BNV) | payer MEDICARE, SELFPAY | PROVIDERS: PCP Internal Medicine; Visit Provider Internal Medicine | DX: I35.1 Nonrheumatic aortic (valve) insufficiency (principal); I51.7 Cardiomegaly | CPT/HCPCS: 93306 ==

== ENCOUNTER 2025-02-17 15:00 | Outpatient (AMB) | payer MEDICARE, SELFPAY ==
--- NOTE | 2025-02-17 15:46 | MHC.OFFVIS ---
Vital Signs 02/17/25 15:47 Height 5 ft 3 in Weight 191 lb 12.835 oz BMI 34.0 BP 90/58 L Blood Pressure Location Lt brachial Position Sitting Pulse 69 Pulse Source Pulse Oximeter Intake Visit Reasons: fu req by pt( switch HS to KM approved) Allergies losartan Allergy (Unknown, Verified 08/20/24 13:51) palp pseudoephedrine (Sudafed) Allergy (Unknown, Verified 08/20/24 13:51) Unknown acetaminophen (From Percocet) Allergy (Verified 08/20/24 13:51) Unknown rivaroxaban (From Xarelto) Adverse Reaction (Intermediate, Verified 08/20/24 13:51) Nose Bleed oxycodone (OXYCODONE) Adverse Reaction (Mild, Verified 08/20/24 13:51) NAUSEA & VOMITING Medication List - Last Reconciled 02/17/25 by Bennett Chow MD albuterol sulfate 90 mcg/actuation 2 puffs inhalation Q4-6H PRN bimatoprost 0.01% drps ophthalmic (eye) biotin mcg PO digoxin 125 mcg PO DAILY diltiazem HCl CD 240 mg PO QAM fluticasone propion-salmeterol 500-50 mcg/dose 2 ea inhalation Q12H hydrochlorothiazide 25 mg PO DAILY metoprolol succinate ER 25 mg PO DAILY potassium chloride 20 mEq PO .3 times a week rivaroxaban (Xarelto) 20 mg PO DAILY sertraline 100 mg PO DAILY valsartan 80 mg PO BID zinc acetate (Galzin) 50 mg PO DAILY HPI Comments Details: [age] year female who was seeing Dr. Basilio previously. She has background history of persistent atrial fibrillation treated with rate control strategy with diltiazem, metoprolol and digoxin. Her last digoxin level was 1. She has been experiencing some dizziness when she is standing. She has low blood pressure. She also has noticed herself to be confused at times. She gets shortness of breath due to COPD. No orthopnea or PND. Taking Xarelto without any bleeding. [facility] Medical History CHF (congestive heart failure) Allergic rhinitis Neck pain Heart failure with preserved ejection fraction Persistent atrial fibrillation Glaucoma Osteopenia Hypertension Depression COPD (chronic obstructive pulmonary disease) Atrial fibrillation Surgical History History of cardioversion History of cardiac radiofrequency ablation Family History Father No problems noted. Mother No problems noted. Social History Housing: House Alcohol intake: current Alcohol intake frequency: a few times a week Alcohol type: wine Patient Tobacco Use Status: Never used Tobacco e-Cigarette/Vaping Use: Never Used Second Hand Smoke Exposure: No service: No Current occupational status: retired Cognitive needs: No Hearing needs: No Vision needs: Yes (Glasses) Review of Systems Const Denies weakness ENT Reports dizziness Card Denies chest pain, Denies chest pain with activity, Denies syncope, Denies rapid heart rate, Denies pedal edema, Denies edema, Denies leg edema, Denies lightheadedness, Denies palpitations, Denies dyspnea, Denies dyspnea on exertion and Denies orthopnea Resp Denies cough, Denies dyspnea and Denies dyspnea on exertion GI Denies hematochezia and Denies change in stool character Musc Denies abnormal gait, Denies muscle cramps, Denies muscle weakness, Denies numbness, Denies radiating pain into limb and Denies tingling Neuro Denies abnormal gait, Reports dizziness, Denies syncope, Denies numbness, Denies tingling and Denies weakness Endo Denies palpitations Physical Exam Vital Signs: Last Vital Signs Pulse 69 02/17/25 15:47 BP 90/58 L 02/17/25 15:47 BMI result Body Mass Index 34.0 GENERAL APPEARANCE: in no acute distress, pleasant. NECK: no carotid bruit, no jugular venous distention. SKIN: no suspicious lesions, warm and dry. HEART: no murmurs, irregular rate and rhythm. LUNGS: clear to auscultation bilaterally. ABDOMEN: soft, nontender. EXTREMITIES: no edema. PERIPHERAL PULSES: equal. NEUROLOGIC: No gross deficits, AAO X 3 Assessment & Plan Assessment & Plan (1) Essential hypertension: Code(s): I10 - Essential (primary) hypertension Category: Medical (2) CHF (congestive heart failure): Comment: ECHO nl EF, mild MR Code(s): I50.9 - Heart failure, unspecified Category: Medical (3) Persistent atrial fibrillation: Code(s): I48.19 - Other persistent atrial fibrillation Category: Medical Plan Pleasant 80 year lady who is here for follow-up. She has background history of persistent atrial fibrillation. She is rate controlled with metoprolol, digoxin and diltiazem. Her last dig level was 1 which is on the higher end and she also has been experiencing some dizziness as well as confusion. I am stopping the digoxin. I am also decreasing the diltiazem to 180 mg daily. Her blood pressure is low and I have advised her to keep herself well hydrated. Clinically euvolemic at this point. Otherwise she will continue same medications. Follow up with us in 4 months. Thank you for allowing me to participate in the care of your patient. Please feel free to contact me if you have any questions. Medications: New diltiazem HCl CD (Cardizem CD) 180 mg PO DAILY 90 caps 3RF Discontinued digoxin Discontinued Reason: Doctor's Order 125 mcg PO DAILY 90 tabs 3RF diltiazem HCl CD Discontinued Reason: Doctor's Order 240 mg PO QAM 90 caps 3RF Coding Level of Care Code Est Pt Level 4 (24796) Diagnoses Essential hypertension I10 CHF (congestive heart failure) I50.9 Persistent atrial fibrillation I48.19
[2025-02-17 15:47] VITALS: BP 90/58; PULSE 69; BMI 34.0
--- OUTSIDE RECORDS SUMMARY | 2025-02-17 18:00 | XMS_ITS | Encounter Summary ---
Author Organization [facility] Address [address] [place] [address] Phone Care Team Providers Care Oral And Maxillofacial Surgery Name Role Phone Gretel Baugh DO Primary Care Provider [phone] Mariela Beltran MD Primary Care Provider [phone] Encounter Details Date Type Department Care Team (Late st Contact Info) Description 03/07/2016 Procedure Pass [facility] PERIOPERATIVE DEPT [address] [place] [address] Social History Tobacco Use Types Packs/Day Years Used Date Smoking Tobacco: Never Smokeless Tobacco: Never Alcohol Use Standard Drinks/Week Comments Yes 1 (1 standard drink = 0.6 oz pur e alcohol) WEEKLY Comments Unknown Sex and Gender Information Value Date Recorded Sex Assigned at Not on file Legal Sex Female 2:29 PM EDT Gender Identity Not on file Sexual Orientation Not on file documented as of this encounter Plan of Treatment Not on file documented as of this encounter Visit Diagnoses Not on filedocumented in this encounter Care Teams Oral And Maxillofacial Surgery Relationship Specialty Start Date End Date Gretel Baugh DO PCP - General 12/30/15 12/10/18 Mariela Beltran MD [facility] [place] [address] PCP - General Internal Medicine 12/11/18 documented as of this encounter Additional Source Comments The information contained in this document represents components of the legal health record. It is not the complete legal health record.[facility]
--- OUTSIDE RECORDS SUMMARY | 2025-02-17 18:00 | XMS_ITS | Encounter Summary ---
Author Organization [facility] Address [address] [place] [address] Phone Care Team Providers Care Run Boat Operator Name Role Phone Mariela Beltran MD Primary Care Provider [phone] Encounter Details Date Type Department Care Team (Late st Contact Info) Description 03/07/2020 Procedure Pass [facility] PERIOPERATIVE DEPT [address] [place] [address] Social History Tobacco Use Types Packs/Day Years Used Date Smoking Tobacco: Never Smokeless Tobacco: Never Alcohol Use Standard Drinks/Week Comments Yes 2 (1 standard drink = 0.6 oz pur e alcohol) Comments No Sex and Gender Information Value Date Recorded Sex Assigned at Not on file Legal Sex Female 2:29 PM EDT Gender Identity Not on file Sexual Orientation Not on file documented as of this encounter Functional Status * Calculated C-SSRS Risk Score (Lifetime/Recent) Answer Date of Assessment Author No Risk Indicated 03/07/2020 8:42 PM Anne Love RN * [place] Suicide Severity Rating Scale (Screener/Recent Self-Report) Question Answer Date of Assessment Author 1. Wish to be (Past 1 Month) No 03/07/2020 8:42 PM Anne Love RN 2. Non-Specific Active Suicidal Thoughts (Past 1 Month) No 03/07/2020 8:42 PM Anne Love RN 6. Suicidal Behavior (Lifetime) No 03/07/2020 8:42 PM Anne Love RN documented as of this encounter Plan of Treatment Not on file documented as of this encounter Visit Diagnoses Not on filedocumented in this encounter Care Teams Run Boat Operator Relationship Specialty Start Date End Date Mariela Beltran MD [facility] [place] [address] PCP - General Internal Medicine 12/11/18 documented as of this encounter Additional Source Comments The information contained in this document represents components of the legal health record. It is not the complete legal health record.[facility]
--- OUTSIDE RECORDS SUMMARY | 2025-02-17 18:00 | XMS_ITS | Encounter Summary ---
Author Organization [facility] Address [address] [place] [address] Phone Care Team Providers Care On Site Services Specialist Name Role Phone Mariela Beltran MD Primary Care Provider [phone] Encounter Details Date Type Department Care Team (Late st Contact Info) Description 04/01/2019 Procedure Pass [facility] PERIOPERATIVE DEPT [address] [place] [address] Social History Tobacco Use Types Packs/Day Years Used Date Smoking Tobacco: Never Smokeless Tobacco: Never Alcohol Use Standard Drinks/Week Comments Yes 1 (1 standard drink = 0.6 oz pur e alcohol) WEEKLY, 1 socially Comments No Sex and Gender Information Value Date Recorded Sex Assigned at Not on file Legal Sex Female 2:29 PM EDT Gender Identity Not on file Sexual Orientation Not on file documented as of this encounter Plan of Treatment Not on file documented as of this encounter Visit Diagnoses Not on filedocumented in this encounter Care Teams On Site Services Specialist Relationship Specialty Start Date End Date Mariela Beltran MD [address] [place] [address] PCP - General Internal Medicine 12/11/18 documented as of this encounter Additional Source Comments The information contained in this document represents components of the legal health record. It is not the complete legal health record.[facility]
--- OUTSIDE RECORDS SUMMARY | 2025-02-17 18:00 | XMS_ITS | Clinical Summary ---
Author Organization [facility] Address [address] [place] [address] Phone Care Team Providers Care Overweaver Name Role Phone Mariela eBltran MD Primary Care Provider [phone] Allergies Active Allergy Reactions Criticality Noted Date Comments Codeine 03/07/2020 Nausea and vomitting Percocet (Oxycodone-Acetaminophen ) Nausea And Vomiting 02/15/2016 MAY USE TYLENOL BUT IS INEFFECTIVE PER PT Pseudoephedrine Hcl Anxiety Medium 02/15/2016 VERY NERVOUS Medications sertraline (ZOLOFT) 50 MG tablet Take 1 tablet (50 mg total) by mouth daily. 1 tablet 6 Active Additional Information Patient taking differently:50 mg OralNightly, Reported on 03/16/2019 furosemide (LASIX) 20 MG tablet Take 1 tablet (20 mg total) by mouth daily. 1 tablet 6 Active potassium chloride SA (K-DUR,KLOR-CON ) 10 MEQ tablet Take 1 tablet (10 mEq total) by mouth 2 (two) times a day. 1 tablet 6 Active Additional Information Patient taking differently: 100 mEqOralDaily, Reported on 03/16/2019 Medication-Free TextIndications :VM SOLGAR-VEGETATI ON VITAMIN Take 1 tablet by mouth nightly at bedtime. Indications: VM SOLGAR-VEGETATIO N VITAMIN Active magnesium chloride 64 mg TbEC Take 1,066 mg by mouth nightly at bedtime. Active cholecalciferol (VITAMIN D3) 1,000 unit tablet Take 1,000 Units by mouth daily. Active Medication-Free Text Lumigan 0.01% 1 drop both eyes every evening 6 Active metoprolol succinate (TOPROL-XL) 25 MG 24 hr tabletIndicatio ns:can not tolerate 25mg daily, cuts pills in half and takes 2 times day Take 25 mg by mouth daily. Indications: can not tolerate 25mg daily, cuts pills in half and takes 2 times day Active dilTIAZem (CARDIZEM CD) 180 MG 24 hr capsule Take 180 mg by mouth daily. Active timolol (TIMOPTIC) 0.5 % ophthalmic solution Place 1 drop into the left eye 2 (two) times a day. Active digoxin (LANOXIN) 125 mcg tablet Take 125 mcg by mouth nightly at bedtime. Active fluticasone propion-salmete roL (ADVAIR DISKUS) 500-50 mcg/dose DISKUS Inhale 500 mcg/actuation of fluticasone into the lungs 2 (two) times a day. Active acetaminophen (TYLENOL) 500 MG tablet Take 2 tablets (1,000 mg total) by mouth every 8 (eight) hours as needed for pain (specific location in comments). 0 0 Active docusate sodium (COLACE) 100 MG capsule Take 1 capsule (100 mg total) by mouth 2 (two) times a day. 0 Active polyethylene glycol (MIRALAX) 17 gram packet Take 17 g by mouth daily as needed (severe constipation). 0 Active senna (SENOKOT) 8.6 mg tablet Take 2 tablets by mouth 2 (two) times a day. 0 Active traMADoL (ULTRAM) 50 mg tablet Take 1-2 tablets (50-100 mg total) by mouth every 8 (eight) hours as needed. 30 tablet 0 Active rivaroxaban (XARELTO) 20 mg Tab Take 1 tablet (20 mg total) by mouth daily. Resume on 03/13/20 0 Active Active Problems Problem Noted Date Diagnosed Date S/P total knee replacement using cement, left H/O total knee replacement, right 04/04/2019 Overview (04/04/2019): Right total knee arthroplasty on April 01, 2019 with Osteoarthritis of right knee 04/01/2019 CHF (congestive heart failure) 03/16/2019 Arrhythmia 03/16/2019 Asthma 03/16/2019 Tinnitus of both ears 03/16/2019 Overview (03/16/2019): X 2 WEEKS D/T GLORIA ASA W/CAFFEINE Glaucoma 03/16/2019 Lower back pain 03/16/2019 Arthritis 03/16/2019 Overview (03/16/2019): KNEES Osteoarthritis of right hip 03/07/2016 Immunizations No known immunizations Social History Tobacco Use Types Packs/Day Years Used Date Smoking Tobacco: Never Smokeless Tobacco: Never Alcohol Use Standard Drinks/Week Comments Yes 2 (1 standard drink = 0.6 oz pur e alcohol) Education Answer Date Recorded Are you interested in more education? Not on wisam e 07/13/2022 Are you concerned about learning? Not on file 07/13/2022 No 07/13/2022 No 07/13/2022 Digital Access Answer Date Recorded No 08/13/2022 No 08/13/2022 Reliable internet access at home? Not on file 08/13/2022 Device with a working camera? Not on file Comments No Sex and Gender Information Value Date Recorded Sex Assigned at Not on file Legal Sex Female 2:29 PM EDT Gender Identity Not on file Sexual Orientation Not on file Last Filed Vital Signs Vital Sign Reading Time Taken Comments Blood Pressure 128/80 03/09/2020 8:09 AM EST Pulse 79 03/09/2020 8:09 AM EST Temperature 36.1 C (97 F) 03/09/2020 8:09 AM EST Respiratory Rate 16 03/09/2020 8:09 AM EST Oxygen Saturation 92% 03/09/2020 8:09 AM EST Inhaled Oxygen Concentration 21% 03/09/2016 3 :40 PM EST Weight 90.7 kg (200 lb) 06/21/2020 1:53 PM EDT Height 161.3 cm (5' 3.5 ) 06/21/2020 1:53 PM EDT Body Mass Index 34.87 06/21/2020 1:53 PM EDT Plan of Treatment Health Maintenance Due Date Last Done Comments Adult Td,Tdap Booster 1945 DEPRESSION SCREENING 1955 ZOSTER VACCINES (1 of 2) 1993 OSTEOPOROSIS SCREENING INITIAL (ONE-TIME) 01/04/2008 PNEUMOCOCCAL VACCINES (50+ years) (2 of 2 - PPSV23, PCV20, or PCV21) 01/21/2017 11/26/2016 RSV VACCINE (1 - 1-dose 75+ series) 2018 CREATININE LEVEL 03/08/2021 03/08/2020, 10/2019, 04/04/2019, Additional history exists POTASSIUM LEVEL 03/08/2021 03/08/2020, 1210/2019, 04/04/2019, Additional history exists INFLUENZA VACCINE (#1) 2024 01/24/2015 COVID-19 VACCINE ( season) 2024 HEPATITIS A VACCINES Aged Out No long er eligible based on patient's age to complete this topic HIB VACCINES Aged Out No longer eligi ble based on patient's age to complete this topic MENINGOCOCCAL VACCINES (ACWY) Aged Out No longer eligible based on patient's age to complete this topic MENINGOCOCCAL VACCINES (B) Aged Out N o longer eligible based on patient's age to complete this topic Medical Devices Implanted Type Area Mechanic Assistant Device Identifier Shelf Expiration Date Model / Serial / Lot Hip Pinn Altrx Liner 32 X 50mm Cisco Hip 10 - [id number] Implanted:Qty: 1 on 03/07/2016 by Ramón Curran MD at [facility] STANDARD Right: Hip [employer] 06/15/2020 [id number] / / [id number] Hip Dep#[id number] Art Ceramic Head 32mm +1.5 Hip 04 - [id number] Implanted:Qty: 1 on 03/07/2016 by Ramón Curran MD at [facility] STANDARD Right: Hip [employer] 12/15/2020 [id number] / / [id number] Knee Implant Component Size 8 Femoral Persona [place] Cement Cruciate Retaining Narrow Right - [id number] Implanted:Qty: 1 on 04/01/2019 by Nain Morse MD at [facility] STANDARD Right: Knee TOM / DIV OF [employer] 11/15/2028 [id number] / / [id number] Description:The implant type , laterality (when applicable), size, and expiration date have been visually and verbally confirmed by the Surgeon, Circulating RN and Scrub Personnel. Knee Implant Component Size 6 Femoral Persona [place] Cement Cruciate Retaining Narrow Left - [id number] Implanted:Qty: 1 on 03/07/2020 by Nain Morse MD at [facility] STANDARD Left: Knee TOM / DIV OF [employer] [id number] 09/14/2028 [id number] / / [id number] Description:The implant type , laterality (when applicable), size, and expiration date have been visually and verbally confirmed by the Surgeon, Circulating RN and Scrub Personnel. Lens Pinn Sector W/Gription 50mm Hip [id number] Implanted:Qty: 1 on 03/07/2016 by Ramón Curran MD at [facility] Right: Hip [employer] 12/15/2025 [id number] / / [id number] Depuy Corail Hip System Cementless Femoral Stem Kla Size 13 High Offset Collar Implanted:Qty: 1 on 03/07/2016 by Ramón Curran MD at [facility] Right: Hip 12/15/2020 [id number] / / Description:HIP STEM CORAIL2 SZ13 LAT COXA VARA SIZE HIP [id number] Cement Bone [place]os R High Viscosity 1x40g Cs/20ea - [id number] Implanted:Qty: 2 on 04/01/2019 by Nain Morse MD at [facility] Right: Knee [employer] 05/15/2022 [id number] / / [id number] Description:The implant type , laterality (when applicable), size, and expiration date have been visually and verbally confirmed by the Surgeon, Circulating RN and Scrub Personnel. Knee Implant 5deg Component Tibial Persona Titanium Stemmed Cemented Rt Size E - [id number] Implanted:Qty: 1 on 04/01/2019 by Nain Morse MD at [facility] Right: Knee TOM / DIV OF [employer] 01/15/2029 [id number] / / [id number] Description:The implant type , laterality (when applicable), size, and expiration date have been visually and verbally confirmed by the Surgeon, Circulating RN and Scrub Personnel. Knee Patella 29mm Claritza Persona All Polyethylene Cemented Conventional - [id number] Implanted:Qty: 1 on 04/01/2019 by Nain Morse MD at [facility] Right: Knee TOM / DIV OF [employer] 01/15/2027 [id number] / / [id number] Description:The implant type , laterality (when applicable), size, and expiration date have been visually and verbally confirmed by the Surgeon, Circulating RN and Scrub Personnel. Lime Supervisor Component L 30mm Od 14 Knee Persona Extension Tivanium Cemented Tapered - [id number] Implanted:Qty: 1 on 04/01/2019 by Nain Morse MD at [facility] Right: Knee TOM / DIV OF [employer] 02/14/2029 [id number] / / [id number] Description:The implant type , laterality (when applicable), size, and expiration date have been visually and verbally confirmed by the Surgeon, Circulating RN and Scrub Personnel. Knee Implant 5deg Component Tibial Persona Titanium Stemmed Cemented Lt Size E - [id number] Implanted:Qty: 1 on 03/07/2020 by Nain Morse MD at [facility] Left: Knee TOM / DIV OF [employer] [id number] 10/05/2029 [id number] / / [id number] Description:The implant type , laterality (when applicable), size, and expiration date have been visually and verbally confirmed by the Surgeon, Circulating RN and Scrub Personnel. Knee Patella 32x8.5mm Persona All Polyethylene Cemented Conventional - [id number] Implanted:Qty: 1 on 03/07/2020 by Nain Morse MD at [facility] Left: Knee TOM / DIV OF [employer] [facility] [id number] 09/15/2027 [id number] / / [id number] Description:The implant type , laterality (when applicable), size, and expiration date have been visually and verbally confirmed by the Surgeon, Circulating RN and Scrub Personnel. Cement Bone Biomet Standard R 1x40 Us - [id number] Implanted:Qty: 3 on 03/07/2020 by Nain Morse MD at [facility] Left: Knee TOM / DIV OF [employer] [id number] 12/15/2021 [id number] / / [id number] Description:The implant type , laterality (when applicable), size, and expiration date have been visually and verbally confirmed by the Surgeon, Circulating RN and Scrub Personnel. Knee Insert 11mm L 4 Compnt Surf Persona Polyeth Ultracongruent Fixd Conventional Lt Fem Tibl Ef - [id number] Implanted:Qty: 1 on 03/07/2020 by Nain Morse MD at [facility] Left: Knee TOM / DIV OF [employer] [id number] 04/17/2024 [id number] / / [id number] Description:The implant type , laterality (when applicable), size, and expiration date have been visually and verbally confirmed by the Surgeon, Circulating RN and Scrub Personnel. Kit Bowl 200mm Short Bone Cement Cartridge Vacuum Femoral Plug Senior Software Test Engineer Mixing Nozzle Restrictor Textile Machine Mechanic Pk/6ea - Duplicate Use Ps # [id number] - [id number] Implanted:Qty: 1 on 03/07/2020 by Nain Morse MD at [facility] Left: Knee CHIDI NENITA[employer]CH[employer]I [employer]STR [id number] 10/16/2020 [id number] / / Description:The implant type , laterality (when applicable), size, and expiration date have been visually and verbally confirmed by the Surgeon, Circulating RN and Scrub Personnel. Lime Supervisor Component L 30mm Od 14 Knee Persona Extension Tivanium Cemented Tapered - [id number] Implanted:Qty: 1 on 03/07/2020 by Nain Morse MD at [facility] Left: Knee TOM / DIV OF [employer] [id number] 12/12/2029 [id number] / / [id number] Description:The implant type , laterality (when applicable), size, and expiration date have been visually and verbally confirmed by the Surgeon, Circulating RN and Scrub Personnel. Procedures Procedure Name Priority Date/Time Associated Diagnosis Comments BASIC METABOLIC PANEL (BMP) Routine 03/08/2020 7:52 AM EST from Last 3 Months or Most Recently Relevant to Health Maintenance Results * (ABNORMAL) Basic metabolic panel (03/08/2020 7:52 AM EST) SODIUM 136 136 - 145 mmol/L [facility] CHLORIDE 99 95 - 106 mmol/L [facility] POTASSIUM 3.6 3.5 - 5.2 mmol/L [facility] CO2 27 20 - 31 mmol/L [facility] BUN 23 9 - 23 mg/dL [facility] CREATININE 1.10 0.50 - 1.30 mg/dL [facility] GLUCOSE 167(H) 74 - 106 mg/dL [facility] CALCIUM 8.5(L) 8.7 - 10.4 mg/dL [facility] EGFR 48(L) >60 mL/min/1.7 3m2 [facility] Comment:Estimated glomerular filtration rate calculated using the CKD-EPI equation. ANION GAP 10 3 - 17 mmol/L [facility] Blood 03/08/2020 7:52 AM EST 03/08/2020 8:03 AM EST us Nain Morse MD LAB BLOOD BKR ORDERABLES Fi nal Result Performing Organization Address City/State/[facility] Co de Phone Number [facility] [address] [place] [address] from Last 3 Months or Most Recently Relevant to Health Maintenance Insurance MEDICARE PART A & B [employer] MEDEX SUPPLEMENT MEDICARE PART A & B [employer] CROSS MEDEX SUPPLEMENT MEDICARE PART A & B [employer]OSS MEDEX SUPPLEMENT MEDICARE PART A & B [employer] MEDEX SUPPLEMENT MEDICARE PART A & B [employer] CROSS MEDEX SUPPLEMENT MEDICARE PART A & B [employer] MEDEX SUPPLEMENT MEDICARE PART A & B [employer] MEDEX SUPPLEMENT MEDICARE PART A & B [employer] MEDEX SUPPLEMENT Member Subscriber Plan / Payer (Ef fective 2007-Present) Name:Danya Yan Relation to Subscriber:Self Name:Danya Yan Payer ID:[id number] (NAIC) Type:Indemnity Address: [address] [place] [address] MEDICARE PART A & B [employer] MEDEX SUPPLEMENT MEDICARE PART A & B [employer] MEDEX SUPPLEMENT Advance Directives For more information, please contact: [phone] (9AM - 5PM [facility], Saturday-Saturday) Documents on File Type Date Recorded Patient Pail Bailer Expl anation Healthcare Proxy 03/16/2016 12:37 PM * Full Code (Presumed) (Latest Code Status on File) Date Activated Date Inactivated Comments 04/01/2019 5:20 PM 04/04/2019 1:10 PM * Full Code (Presumed) Date Activated Date Inactivated Comments 03/07/2016 6:20 PM 03/10/2016 1:12 PM * Full Code (Presumed) Date Activated Date Inactivated Comments 03/07/2016 11:08 AM 03/07/2016 6:20 PM Healthcare Agents on File Name Relationship Healthcare Agent Relationshi p Communication Max Yan Son .Primary Health Care Agent (Proxy form on file) Care Teams Overweaver Relationship Specialty Start Date End Date Mariela Beltran MD [address] [place] [id number] PCP - General Internal Medicine 12/11/18 Additional Source Comments The information contained in this document represents components of the legal health record. It is not the complete legal health record.[facility]
== END 2025-02-17 16:08 | disposition home or self-care (01) ==
LOC: HO.HCS 15:01
PROVIDERS: PCP Internal Medicine; Visit Provider Internal Medicine Cardiovascular Disease
DX: I10 Essential (primary) hypertension (principal); I50.9 Heart failure, unspecified; I48.19 Other persistent atrial fibrillation
CPT/HCPCS: 99214

== ENCOUNTER → 2025-02-17 15:00 | Outpatient (BNVA) | payer MEDICARE, SELFPAY | PROVIDERS: PCP Internal Medicine; Visit Provider Internal Medicine Cardiovascular Disease | DX: I10 Essential (primary) hypertension (principal); I48.19 Other persistent atrial fibrillation; R42 Dizziness and giddiness; Z79.01 Long term (current) use of anticoagulants | CPT/HCPCS: 99212 ==

== ENCOUNTER 2025-03-01 13:11 | Outpatient (AMB) | payer MEDICARE, SELFPAY ==
--- NOTE | 2025-03-01 13:19 | A.OFFPC_ITS ---
Vital Signs 03/01/25 13:20 Height 5 ft 3 in Weight 170 lb 6 oz BMI 30.2 BP 118/68 Blood Pressure Location Lt brachial Position Sitting Respiration 18 Pulse 84 Pulse Source Pulse Oximeter Temp Source Temporal Artery Scan Pulse Oximetry (%) 96 Oxygen Delivery Method Room Air Intake Visit Reasons: Stomachache, left side Director Field Services Required: No Accompanied by: Self / Same As Patient Allergies losartan Allergy (Unknown, Verified 03/01/25 13:21) palp pseudoephedrine (Sudafed) Allergy (Unknown, Verified 03/01/25 13:21) Unknown acetaminophen (From Percocet) Allergy (Verified 03/01/25 13:21) Unknown rivaroxaban (From Xarelto) Adverse Reaction (Intermediate, Verified 03/01/25 13: 21) Nose Bleed oxycodone (OXYCODONE) Adverse Reaction (Mild, Verified 03/01/25 13:21) NAUSEA & VOMITING Medication List - Last Reconciled 03/01/25 by Juliet Rosa MD albuterol sulfate 90 mcg/actuation 2 puffs inhalation Q4-6H PRN bimatoprost 0.01% drps ophthalmic (eye) biotin mcg PO diltiazem HCl CD 180 mg PO DAILY fluticasone propion-salmeterol 500-50 mcg/dose 2 ea inhalation Q12H hydrochlorothiazide 25 mg PO DAILY metoprolol succinate ER 25 mg PO DAILY potassium chloride 20 mEq PO .3 times a week rivaroxaban (Xarelto) 20 mg PO DAILY sertraline 100 mg PO DAILY valsartan 80 mg PO BID zinc acetate (Galzin) 50 mg PO DAILY Tobacco use date assessed: 03/01/25 Fall risk assessment: No Falls in past year Last assessed Fall Risk: 03/01/25 Dental Screening Dental Screen Date: 03/01/25 Did you have a dental visit in the last 12 months?: No Did you have a dental problem in the last 6 months where you did not have access to dental care?: No Was dental information given to patient?: No HPI HPI Comments History of Present Illness Details The patient is an 80-year-old female presenting with a painful rash on her left side of her abdomen. She reports the onset of pain on her left side about a week ago, which was severe enough to make it difficult to walk. The rash appeared last night and was initially itchy, for which she applied Vicks. Associated symptoms include dizziness and nausea. She reports that Tylenol did not help with the pain. The patient has a history of shingles many years ago. Her past medical history is significant for atrial fibrillation, for which she takes Xarelto. She denies any known kidney problems. Her surgical history includes two knee replacements and one hip replacement. She also has arthritis on her left side and was recently using a heating pad for muscle pain, which had resolved. [facility] Medical History CHF (congestive heart failure) Allergic rhinitis Neck pain Heart failure with preserved ejection fraction Persistent atrial fibrillation Glaucoma Osteopenia Hypertension Depression COPD (chronic obstructive pulmonary disease) Atrial fibrillation Surgical History History of cardioversion History of cardiac radiofrequency ablation Family History Father No problems noted. Mother No problems noted. Social History Housing: House Alcohol intake: current Alcohol intake frequency: a few times a week Alcohol type: wine Patient Tobacco Use Status: Never used Tobacco e-Cigarette/Vaping Use: Never Used Second Hand Smoke Exposure: No service: No Current occupational status: retired Cognitive needs: No Hearing needs: No Vision needs: Yes (Glasses) Questionnaire Thrive Questionnaire Date Thrive assessed: 11/11/23 MYLA-7 AMB Questionnaire MYLA-7 Date MYLA - 7 assessed: 11/11/23 Source: Developed by Drs. Otis Guzman, Parvin Small, Amari Reed and colleagues, with an educational krysten from [employer]. Review of Systems Const Details: As per HPI. Physical exam (Primary Care) Vital Signs: Last Vital Signs Pulse 84 03/01/25 13:20 Resp 18 03/01/25 13:20 BP 118/68 03/01/25 13:20 Pulse Ox 96 03/01/25 13:20 Oxygen Delivery Method Room Air 03/01/25 13:20 BMI result Body Mass Index 30.2 Tobacco/Smoking Status: Tobacco use Status Tobacco use date assessed 03/01/25 03/01/25 13:30 Patient Tobacco Use Status Never used Tobacco 12/15/25 13:21 e-Cigarette/Vaping Use Never Used 03/01/25 13:21 Thrive Assessment: Date of Thrive Assessment Date Thrive assessed 11/11/23 03/01/25 13:21 Const Other: Pertinent findings are in BOLD GENERAL APPEARANCE NAD, activity normal for age, well developed/ well nourished, no cyanosis, pallor, or diaphoresis. EYES lids/conjunctiva normal. EARS/NOSE/THROAT Mucous membranes moist, nares normal, lips/teeth normal uvula midline without oral pharyngeal erythema, exudate or swelling TMs normal bilaterally. No lymphangitis/lymphedema. HEAD/NECK normocephalic atraumatic, no facial trauma, neck is supple. RESPIRATORY respiratory effort normal, speaks in full sentences, no tripod position, no accessory muscle use. Lungs clear to auscultation without rhonchi, wheezes, rales CARDIAC Regular rate and rhythm, no edema. ABDOMINAL Soft, ND/NT. No evidence of fluid wave. No pulsatile masses on exam, rebound tenderness, Juarez sign or pain over Mcburney's point. MUSCLES/EXTREMITIES No abnormal range of motion, no swelling. SKIN Warm, pink and dry. No rashes, dermatoses, petechiae or lesions. Blisters on left side of the abdomen. NEUROLOGICAL Speech is clear and appropriate. Normal level of consciousness. Gait and coordination are normal. 5/5 strength in all extremities. PSYCH Normal mood and affect. Judgement/competence is appropriate Coding Level of Care Code Est Pt Level 3 (02758) Diagnoses Herpes zoster without complication B02.9 Herpes zoster complications: without complications Time Spent (min) 20 Assessment & Plan Assessment & Plan (1) Shingles: Code(s): B02.9 - Zoster without complications Category: Medical Qualifiers: Herpes zoster complications: without complications Qualified Code(s): B02.9 - Zoster without complications Plan: - The patient's left-sided pain followed by a rash is characteristic of shingles. - Prescribed valacyclovir (Valtrex) 1 gram three times per day for 10 days. - For pain management, recommended Tylenol and prescribed a lidocaine patch to be applied to the affected area as needed. - For associated nausea, which is likely related to the pain, prescribed meclizine 12.5 mg twice daily as needed. - Advised to be cautious with meclizine due to potential side effects. - Educated that the pain should resolve as the shingles improve, but there is a small chance of postherpetic neuralgia. - Counseled on preventing transmission to her granddaughter by avoiding direct contact with the lesions. Plan I explained to the patient that her symptoms of severe side pain followed by a rash are characteristic of a shingles outbreak. I have prescribed valacyclovir, an antiviral medication, to be taken for 10 days to treat the infection. For pain management, I recommended Tylenol and prescribed a lidocaine patch. I have also prescribed meclizine for her nausea, with a caution about its side effects (not to drive after taking it). I informed her that the pain should subside as the rash heals, though there is a small risk of persistent pain (postherpetic neuralgia). As she lives with her granddaughter, I advised her to avoid direct contact between the rash and her granddaughter to prevent transmission. Medications: New meclizine 12.5 mg PO TID PRN 7 tabs 0RF dizziness valacyclovir 1,000 mg PO TID 30 tabs 0RF lidocaine 4% ([place]) 1 patch topical DAILY PRN 5 ea 1RF pain meclizine 12.5 mg PO BID PRN 7 tabs 0RF dizziness
[2025-03-01 13:20] VITALS: BP 118/68; PULSE 84; RESP 18; O2SAT 96; BMI 30.2
--- OUTSIDE RECORDS SUMMARY | 2025-03-01 19:11 | XMS_ITS | Encounter Summary ---
Author Organization [facility] Address [address] [facility] [address] [place] [id number] Phone Care Team Providers Care Window Treatment Installer Name Role Phone Mariela Beltran MD Primary Care Provider [phone] Encounter Details Date Type Department Care Team (Late st Contact Info) Description 04/01/2019 Procedure Pass [facility] PERIOPERATIVE DEPT [address] [place] [address] Social History Tobacco Use Types Packs/Day Years [...] on filedocumented in this encounter Care Teams Window Treatment Installer Relationship Specialty Start Date End Date Mariela Beltran MD [address] [place] [address] PCP - General Internal Medicine 12/11/18 documented as of this encounter Additional Source Comments The information contained in this document represents components of the legal health record. It is not the complete legal health record.[facility]
--- OUTSIDE RECORDS SUMMARY | 2025-03-01 19:11 | XMS_ITS | Encounter Summary ---
Author Organization [facility] Address [address] [facility] [address] [place] [address] Phone Care Team Providers Care Elevator Examiner Name Role Phone Gretel Baugh DO Primary Care Provider [phone] Mariela Beltran MD Primary Care Provider [phone] Encounter Details Date Type Department Care Team (Late st Contact Info) Description 03/07/2016 Procedure Pass [facility] PERIOPERATIVE DEPT [address] [place] [address] Social History Tobacco Use Types Packs/Day Years [...] on filedocumented in this encounter Care Teams Elevator Examiner Relationship Specialty Start Date End Date Gretel Baugh DO PCP - General 12/30/15 12/10/18 Mariela Beltran [place] [address] PCP - General Internal Medicine 12/11/18 documented as of this encounter Additional Source Comments The information contained in this document represents components of the legal health record. It is not the complete legal health record.[facility]
--- OUTSIDE RECORDS SUMMARY | 2025-03-01 19:11 | XMS_ITS | Encounter Summary ---
Author Organization [facility] Address [address] [facility] [place] [address] Phone Care Team Providers Care Knobber Name Role Phone Mariela Beltran MD Primary Care Provider [phone] Encounter Details Date Type Department Care Team (Late st Contact Info) Description 03/07/2020 Procedure Pass [facility] PERIOPERATIVE DEPT [address] [place] [address] Social History Tobacco Use Types Packs/Day Years [...] 03/07/2020 8:42 PM Anne Love RN * [place] Suicide Severity Rating Scale (Screener/Recent Self-Report) Question [...] on filedocumented in this encounter Care Teams Knobber Relationship Specialty Start Date End Date Mariela Beltran MD [place] [address] PCP - General Internal Medicine 12/11/18 documented as of this encounter Additional Source Comments The information contained in this document represents components of the legal health record. It is not the complete legal health record.[facility]
--- OUTSIDE RECORDS SUMMARY | 2025-03-01 19:11 | XMS_ITS | Clinical Summary ---
Author Organization [facility] Address [address] [facility] [address] [place] [address] Phone Care Team Providers Care Instructor Dramatic Arts Name Role Phone Mariela Beltran MD Primary Care Provider [phone] Allergies Active Allergy Reactions Criticality Noted Date [...] this topic Medical Devices Implanted Type Area Rda Device Identifier Shelf Expiration Date Model / Serial / Lot Hip Pinn Altrx Liner 32 X 50mm Cisco Hip 10 - [id number] Implanted:Qty: 1 on 03/07/2016 by Ramón Curran MD at [facility] STANDARD Right: Hip [employer] 06/15/2020 [id number] / / [id number] Hip Dep#[id number] Art Ceramic Head 32mm +1.5 Hip 04 - [id number] Implanted:Qty: 1 on 03/07/2016 by Ramón Curran MD at [facility] STANDARD Right: Hip [employer] 12/15/2020 [id number] / / [id number] Knee Implant Component Size 8 Femoral Persona [place] Cement Cruciate Retaining Narrow Right - [id number] Implanted:Qty: 1 on 04/01/2019 by Nain Morse MD at [facility] STANDARD Right: Knee TOM / DIV OF [employer] 11/15/2028 [id number] / / [id number] Description:The implant type , laterality (when applicable), size, and expiration date have been visually and verbally confirmed by the Surgeon, Circulating RN and Scrub Personnel. Knee Implant Component Size 6 Femoral Persona [place] Cement Cruciate Retaining Narrow Left - [id number] Implanted:Qty: 1 on 03/07/2020 by Nain Morse MD at [facility] STANDARD Left: Knee TOM / DIV OF [employer] ( [employer] ) [id number] 09/14/2028 [id number] / / [id number] Description:The implant type , laterality (when applicable), size, and expiration date have been visually and verbally confirmed by the Surgeon, Circulating RN and Scrub Personnel. Lens Pinn Sector W/Gription 50mm Hip [id number] Implanted:Qty: 1 on 03/07/2016 by Ramón Curran MD at [facility] Right: Hip [employer] 12/15/2025 [id number] / / [id number] Depuy Corail Hip System Cementless Femoral Stem Kla Size 13 High Offset Collar Implanted:Qty: 1 on 03/07/2016 by Ramón Curran MD at [facility] Right: Hip 12/15/2020 [id number] / / Description:HIP STEM CORAIL2 SZ13 LAT COXA VARA SIZE HIP [id number] Cement Bone [place] R High Viscosity 1x40g Cs/20ea - [id number] Implanted:Qty: 2 on 04/01/2019 by Nain Morse MD at [facility] Right: Knee RETC 05/15/2022 [id number] / / [id number] Description:The implant type , laterality (when applicable), size, and expiration date have been visually and verbally confirmed by the Surgeon, Circulating RN and Scrub Personnel. Knee Implant 5deg Component Tibial Persona Titanium Stemmed Cemented Rt Size E - [id number] Implanted:Qty: 1 on 04/01/2019 by Nain Morse MD at [facility] Right: Knee TOM / DIV OF [employer] ( [employer] ) 01/15/2029 [id number] / / [id number] Description:The implant type , laterality (when applicable), size, and expiration date have been visually and verbally confirmed by the Surgeon, Circulating RN and Scrub Personnel. Knee Patella 29mm Claritza Persona All Polyethylene Cemented Conventional - [id number] Implanted:Qty: 1 on 04/01/2019 by Nain Morse MD at [facility] Right: Knee TOM / DIV OF [employer] ( [employer] ) 01/15/2027 [id number] / / [id number] Description:The implant type , laterality (when applicable), size, and expiration date have been visually and verbally confirmed by the Surgeon, Circulating RN and Scrub Personnel. Marine Operations Coordinator Component L 30mm Od 14 Knee Persona Extension Tivanium Cemented Tapered - [id number] Implanted:Qty: 1 on 04/01/2019 by Nain Morse MD at [facility] Right: Knee TOM / DIV OF [employer] ( [employer]LM ) 02/14/2029 [id number] / / [id number] Description:The implant type , laterality (when applicable), size, and expiration date have been visually and verbally confirmed by the Surgeon, Circulating RN and Scrub Personnel. Knee Implant 5deg Component Tibial Persona Titanium Stemmed Cemented Lt Size E - [id number] Implanted:Qty: 1 on 03/07/2020 by Nain Morse MD at [facility] Left: Knee TOM / DIV OF [employer] ( [employer]LM ) [id number] 10/05/2029 [id number] / / [id number] Description:The implant type , laterality (when applicable), size, and expiration date have been visually and verbally confirmed by the Surgeon, Circulating RN and Scrub Personnel. Knee Patella 32x8.5mm Persona All Polyethylene Cemented Conventional - [id number] Implanted:Qty: 1 on 03/07/2020 by Nain Morse MD at [facility] Left: Knee TOM / DIV OF [employer] [facility] [id number] 09/15/2027 [id number] / / [id number] Description:The implant type , laterality (when applicable), size, and expiration date have been visually and verbally confirmed by the Surgeon, Circulating RN and Scrub Personnel. Cement Bone Biomet Standard R 1x40 Us - [id number] Implanted:Qty: 3 on 03/07/2020 by Nain Morse MD at [facility] Left: Knee TOM / DIV OF [employer] ( [employer] ) [id number] 12/15/2021 [id number] / / [id number] Description:The implant type , laterality (when applicable), size, and expiration date have been visually and verbally confirmed by the Surgeon, Circulating RN and Scrub Personnel. Knee Insert 11mm L 4 Compnt Surf Persona Polyeth Ultracongruent Fixd Conventional Lt Fem Tibl Ef - [id number] Implanted:Qty: 1 on 03/07/2020 by Nain Morse MD at [facility] Left: Knee TOM / DIV [employer] ( [employer] ) [id number] 04/17/2024 [id number] / / [id number] Description:The implant type , laterality (when applicable), size, and expiration date have been visually and verbally confirmed by the Surgeon, Circulating RN and Scrub Personnel. Kit Bowl 200mm Short Bone Cement Cartridge Vacuum Femoral Plug Splicer Machine Operator Mixing Nozzle Restrictor Actor Understudy Pk/6ea - Duplicate Use Ps # [id number] - [id number] Implanted:Qty: 1 on 03/07/2020 by Nain Morse MD at [facility] Left: Knee CHIDI NENITA/CHIDI INSTR [id number] 10/16/2020 [id number] / / Description:The implant type , laterality (when applicable), size, and expiration date have been visually and verbally confirmed by the Surgeon, Circulating RN and Scrub Personnel. Marine Operations Coordinator Component L 30mm Od 14 Knee Persona Extension Tivanium Cemented Tapered - [id number] Implanted:Qty: 1 on 03/07/2020 by Nain Morse MD at [facility] Left: Knee TOM / DIV OF [employer] ( [employer] ) [id number] 12/12/2029 [id number] / / [id number] Description:The implant type , laterality (when applicable), [...] EST) SODIUM 136 136 - 145 mmol/L [facility] CHLORIDE 99 95 - 106 mmol/L [facility] POTASSIUM 3.6 3.5 - 5.2 mmol/L [facility] CO2 27 20 - 31 mmol/L [facility] BUN 23 9 - 23 mg/dL [facility] CREATININE 1.10 0.50 - 1.30 mg/dL [facility] GLUCOSE 167(H) 74 - 106 mg/dL [facility] CALCIUM 8.5(L) 8.7 - 10.4 mg/dL [facility] EGFR 48(L) >60 mL/min/1.7 3m2 [facility] Comment:Estimated glomerular filtration rate calculated using the CKD-EPI equation. ANION GAP 10 3 - 17 mmol/L [facility] Blood 03/08/2020 7:52 AM EST 03/08/2020 8:03 AM EST us Nain Morse MD LAB BLOOD BKR ORDERABLES Fi nal Result Performing Organization Address City/State/[facility] Co de Phone Number [facility] [address] [place] [address] from Last 3 Months or Most Recently Relevant to Health Maintenance Insurance MEDICARE PART A & B [employer] MEDEX SUPPLEMENT MEDICARE PART A & B [employer] MEDEX SUPPLEMENT MEDICARE PART A & B [employer] MEDEX SUPPLEMENT MEDICARE PART A & B [employer] MEDEX SUPPLEMENT MEDICARE PART A & B [employer] MEDEX SUPPLEMENT MEDICARE PART A & B [employer] MEDEX SUPPLEMENT MEDICARE PART A & B [employer] MEDEX SUPPLEMENT MEDICARE PART A & B [employer] MEDEX SUPPLEMENT MEDICARE PART A & B [employer] MEDEX SUPPLEMENT MEDICARE PART A & B [employer] MEDEX SUPPLEMENT Advance Directives For more information, please contact: [phone] (9AM - 5PM [facility], Saturday-Saturday) Documents on File Type Date Recorded Patient Underlay Stitcher Expl anation Healthcare Proxy 03/16/2016 12:37 PM [...] Agent (Proxy form on file) Care Teams Instructor Dramatic Arts Relationship Specialty Start Date End Date Mariela Beltran MD [address] [place] [address] PCP - General Internal Medicine 12/11/18 Additional Source Comments The information contained in this document represents components of the legal health record. It is not the complete legal health record.[facility]
== END 2025-03-01 14:02 | disposition home or self-care (01) ==
LOC: HO.HMCH 13:12
PROVIDERS: PCP Internal Medicine; Visit Provider Internal Medicine
DX: B02.9 Zoster without complications (principal)

== ENCOUNTER → 2025-03-01 13:11 | Outpatient (BNVA) | payer MEDICARE, SELFPAY | PROVIDERS: PCP Internal Medicine; Visit Provider Internal Medicine | DX: R21 Rash and other nonspecific skin eruption (principal); B02.9 Zoster without complications | CPT/HCPCS: 99212 ==